=== PATIENT | male | born 1965 | race African-American/Black ===

== ENCOUNTER 2018-06-21 13:19 | Inpatient (IN) | payer OTHER ==
[~2018-06-21] VITALS: Ht 190.5 cm; Wt 149.2 kg
[2018-06-21] VITALS (12 sets, daily range): BP systolic 124–163; BP diastolic 60–84
--- NOTE | ~2018-06-21 | EKG ---
[place] [address] [facility] [place] [address] ELECTROCARDIOGRAM REPORT Name: GUI BUTLER Room #: 239-P ADM IN M.R.#: [id number] Admission: 06/21/18 Attend Phys: Kevin Gorman MD Discharge: Date of : 61 Report #: [id number] THIS REPORT FOR: //name// [facility] ED Test Date: 2018-06-21 Test Time: 13:33:14 Pat Name: GUI BUTLER Department: Room: 239 Gender: M Rn Anesthetist: SERINA : 1965 Requested By: Loan Umana Order Number: [id number] MD: Anand Robledo Measurements Intervals [place] Rate: 77 P: 54 [place]: 187 QRS: 48 QRSD: 103 T: 64 QT: 437 QTc: 495 Interpretive Statements Sinus rhythm Occasional supraventricular complexes Borderline prolonged QT interval No previous ECG available for comparison Electronically Signed On 06-22-2018 8:02:52 CDT by Anand Robledo [email or web address] <ELECTRONICALLY SIGNED> By: Anand Robledo MD, [facility] 06/22/18 0802 1333 32 Anand Robledo MD, FACC /EPI
--- NOTE | ~2018-06-21 | 2DMMODE ---
[address] [address] 2 D/M-MODE ECHOCARDIOGRAM Name: GUI BUTLER Room #: 239-P ADM IN M.R.#: [id number] Admission: 06/21/18 Attend Phys: Kevin Gorman, Discharge: Date of : 61 Date of Service: 06/22/18 0919 Report #: [id number] THIS REPORT FOR: //name// APPROVED REPORT Study performed: 06/22/2018 08:31:38 EXAM: Comprehensive 2D, Doppler, and color-flow Echocardiogram Patient Location: ICU Room #: 239 Status: routine BSA: 2.75 HR: 78 bpm BP: 128/67 mmHg Rhythm: NSR Other Information Study Quality: Adequate Indications Congestive Heart Failure COPD Diabetes Dyspnea Hypertension/HDD Morbid obesity 2D Dimensions IVC: 33.00 mm Tricuspid Valve TR Peak Brennen.: 3.80 m/s TR Peak Gr.: 57.83 mmHg PA Pressure: 73.00 mmHg Left Ventricle The left ventricle is normal size. There is normal LV segmental wall motion. Mild concentric left ventricular hypertrophy. The left ventricular systolic function is normal. The left ventricular ejection fraction is within the normal range. LVEF is 55-60%. Right Ventricle Right ventricle is dilated. The right ventricular systolic function is normal. [address] [place] [address] 2 D/M-MODE ECHOCARDIOGRAM Name: GUI BUTLER Room #: 239-P ADM IN M.R.#: [id number] Admission: 06/21/18 Attend Phys: Kevin Gorman, Discharge: Date of : 61 Date of Service: 06/22/18918 Report #: [id number] Atria The left atrium size is normal. Right atrium is dilated. Aortic Valve The aortic valve is not well visualized, grossly normal. No Doppler Mitral Valve The mitral valve is normal in structure. No Doppler Tricuspid Valve The tricuspid valve is normal in structure. There is moderate tricuspid regurgitation. Estimated PAP 70 mmHg. There is severe pulmonary hypertension. Pulmonic Valve The pulmonary valve is normal in structure. Great Vessels The aortic root is normal in size. The inferior vena cava is dilated with no inspiratory collapse. Pericardium There is no pericardial effusion. <Conclusion> Limited/Abbreviated study The left ventricular systolic function is normal. There is normal LV segmental wall motion. Right atrium and right ventricle are dilated. The aortic valve is not well visualized, grossly normal. The mitral valve is normal in structure. There is moderate tricuspid regurgitation. Estimated pulmonary artery pressure of 70 mmHg. There is no pericardial effusion. <ELECTRONICALLY SIGNED> By: Anand Robledo MD, FAC 06/22/18918 8 8 Anand Robledo MD, FACC /INF
--- NOTE | ~2018-06-21 | HC ---
[facility] [place] [address] CONSULTATION Name: GUI BUTLER Room #: 239-P [facility] IN M.R.#: [id number] Admission: 06/21/18 Attend Phys: Kevin Gorman MD Discharge: Date of : 61 Report #: [id number] THIS REPORT FOR: //name// CC: JEREMÍAS physician/PCP Kevin Gorman DATE OF SERVICE: 06/21/2018 REASON FOR CONSULTATION: Acute on chronic kidney disease. HISTORY OF PRESENT ILLNESS: The patient is followed in our office by Dr. Turcios with chronic kidney disease, baseline serum creatinine of about 3 with recurrent admissions for respiratory failure, usually hypercapnic acute respiratory failure with pulmonary infiltrates and diastolic heart failure. He is admitted again with similar findings at this time. He presents extremely short winded with a very high pCO2, depressed mental status and elevated creatinine. PAST MEDICAL HISTORY: Diabetic nephropathy, obesity with obesity hypoventilation, paroxysmal atrial fibrillation, severe cor pulmonale, hypertension, diabetes. Also, includes obstructive sleep apnea. He has some sort of Trilogy machine at home and hypothyroidism. FAMILY HISTORY: Please see old charts. SOCIAL HISTORY: No cigarettes or alcohol. REVIEW OF SYSTEMS: Cannot be taken as the patient's mental status is rather depressed. He is seen in the ICU on CPAP. HOME MEDICATIONS: As listed include DuoNeb inhaler, tapering prednisone, Ceftin, Synthroid 200 mcg a day, torsemide 40 mg a day, insulin, amlodipine 5 mg per day. PHYSICAL EXAMINATION: GENERAL: Obese, chronically ill-appearing gentleman, poorly responsive on the BiPAP in ICU. SKIN: Unremarkable. SKELETAL: Well developed, well nourished, obese. HEENT: Extraocular movements cannot be tested. Pupils are reactive. No scleral icterus. Hearing and vision not tested. Face mask on with his BiPAP. CHEST: Shows diminished breath sounds. HEART: Distant. ABDOMEN: Soft, obese. EXTREMITIES: 2+ peripheral edema. NEUROLOGIC: Again, depressed mental status. [facility] [address] [place] [address] CONSULTATION Name: GUI BUTLER Room #: [facility] IN .R.#: [id number] Admission: 06/21/18 Attend Phys: Kevin Gorman MD Discharge: Date of : 61 Report #: [id number] LABORATORY DATA: Creatinine 4.3, BUN 90, creatinine up from 3.2 at time of discharge 6 weeks ago or so. Chest x-ray shows congestive heart failure. ASSESSMENT AND PLAN: 1. Acute on chronic kidney disease. He has respiratory failure, cor pulmonale, decreased renal perfusion, elevated creatinine. Hopefully, with diuresis this will resolve as it has in the past. 2. Respiratory failure, whether he needs antibiotics and/or steroids is up in the air. I will leave that to Pulmonary. 3. Diabetic nephropathy. 4. Obesity hypoventilation. 5. Cor pulmonale. 6. Poor dietary compliance. By: 1733 2312 Richard Cazares MD /nt
[~2018-06-21 13:19] MED LIST: ALDACTONE25 MG PO; AMARYL1 MG; AMLODIPINE; AMLODIPINE PO; ARICEPT23 MG; ASPIRIN EC81 M1; AUGMENTIN 875875 MG PO; AVAPRO300 MG; BACTRIM DS TAB1 EACH PO; CEFUROXIME250 MG PO; COLCHICINE0.6 MG PO; COLCRYS 0.6 MG0.6 MG PO; DEMADEX 2020 MG/1 TA PO; DEMADEX20 MG; DIGOXIN; DOXYCYCLINE 10100 M1 PO; DUONEB 2.5-0.5 M3 ML INH; ERYTHROMYCIN E3.5 G2 OPHTHALMIC; FIASP 100100 UNIT/1 SUBQ; FLAGYL500 MG PO; FUROSEMIDE; HUMALOG100 UNIT/1 SUBQ; HYDROXYZINE HCL25 M1 PO; IBUPROFEN 600600 M1 PO; IRON325 PO; K-DUR 20 MEQ T20 MEQ; KEFLEX500 M1 PO; LANOXIN 0.120.125 M3; LANOXIN 0.250.25 M1 PO; LANTUS SOL100 UNIT/1 SUBQ; LANTUS100 UNIT/M SUBQ; LASIX 40 MG TAB40 MG PO; LASIX 80 MG TAB80 MG PO; LISINOPRIL; LISINOPRIL40 MG PO; LISINOPRIL5 MG; MIRALAX17 GM PO; NAMENDA 10 MG T10 MG; NEPHROCAPS SOFT1 CAP PO; NORCO 5-325 TA1 EACH PO; NORVASC 5 MG TAB5 MG PO; NORVASC5 MG PO; NOVOLIN N100 UNIT/1 SQ; NOVOLIN N100 UNIT/1 SUBQ; OXYCODONE HCL10 MG PO; PERCOCET 5-3251 EACH PO; PERCOCET PO; POTASSIUM; PREDNISONE 10 M10 MG; PREDNISONE 10 M10 MG PO; PREDNISONE 20 M20 MG PO; PREDNISONE 5 MG5 MG PO; PRINIVIL PO; PRINIVIL20 MG PO; PROBIOTIC1 EAC1 PO; RENVELA800 MG PO; SEROQUEL 25 MG25 M1; SYNTHROID; SYNTHROID125 MCG; SYNTHROID200 MCG PO; SYNTHROID50 MCG; TORSEMIDE10 MG PO; TORSEMIDE20 MG PO; TYLENOL325 MG PO; ULTRA-LIGHT RO1 EACH MC; ULTRAM 50MG TAB50 MG PO; UNICOMPLEX M TA1 TA1 PO; V-R WOMEN'S CO1 EACH PO; VIT D; VITAMIN D31000 UNI2; ZOLOFT 50 MG TA50 M1; [UNRECOGNIZED DRUG - OTHER]
[2018-06-21 14:08] LABS: HEMATOCRIT 28.2 % (42.0-52.0); HEMOGLOBIN 8.5 gm/dL (14.0-18.0); MCH 25.2 pg (26.0-34.0); MCV 84.2 fL (80.0-100.0); PLATELET COUNT 261 thou/uL (150-400); RBC 3.35 mil/uL (4.50-6.00); RDW 19.7 % (10.5-14.5); WBC 8.8 thou/uL (4.0-11.0)
[2018-06-21 14:17] LABS: ANION GAP 7 mmol/L (7-16); BUN 87 mg/dL (7-18); CALCIUM 8.7 mg/dL (8.5-10.1); CHLORIDE 103 mmol/L (98-107); CO2 27 mmol/L (21-32); CREATININE 4.3 mg/dL (0.7-1.3); GLUCOSE 207 mg/dL (74-106); POTASSIUM 4.6 mmol/L (3.5-5.1); SODIUM 137 mmol/L (136-145)
[2018-06-21 14:26] LABS: TROPONIN-I <0.06 ng/mL (<0.06)
[2018-06-21 14:48] LABS: ABSOLUTE NEUTROPHILS 6.9 thou/uL (1.4-8.2); ANISOCYTOSIS 2+
[2018-06-21 14:49] LABS: POLYCHROMASIA OCCASIONAL
[2018-06-21 15:18] LABS: BE(vivo) -2.4 mmol/L (-2 to +3); HCO3 27.3 mmol/L (22.0-26.0); sO2 94.4 % (92.0-98.0)
[2018-06-21 15:19] LABS: PCO2 82.9 mmHg (35.0-45.0); PO2 95.2 mmHg (80.0-100.0); pH 7.136 (7.360-7.450)
[2018-06-21 16:24] LABS: ALBUMIN 3.3 g/dL (3.4-5.0); CALCIUM 8.4 mg/dL (8.5-10.1); CREATININE 4.3 mg/dL (0.7-1.3); POTASSIUM 4.7 mmol/L (3.5-5.1); TOTAL BILIRUBIN 0.4 mg/dL (<0.1-1.0)
[2018-06-21 17:46] LABS: BE(vivo) -1.1 mmol/L (-2 to +3); HCO3 27.6 mmol/L (22.0-26.0); sO2 90.5 % (92.0-98.0)
[2018-06-21 17:47] LABS: PCO2 72.3 mmHg (35.0-45.0); PO2 73.1 mmHg (80.0-100.0)
[2018-06-22] VITALS (20 sets, daily range): BP systolic 15–164; BP diastolic 58–98
[2018-06-22 07:43] LABS: CALCIUM 8.2 mg/dL (8.5-10.1); CREATININE 3.8 mg/dL (0.7-1.3); PHOSPHORUS 5.7 mg/dL (2.5-4.9); POTASSIUM 4.9 mmol/L (3.5-5.1)
[2018-06-22 08:13] LABS: HCO3 25.8 mmol/L (22.0-26.0); PCO2 62.2 mmHg (35.0-45.0); pH 7.236 (7.360-7.450); sO2 95.1 % (92.0-98.0)
[2018-06-22 08:14] LABS: PO2 89.5 mmHg (80.0-100.0)
[2018-06-23] VITALS (11 sets, daily range): BP systolic 129–165; BP diastolic 60–97
[2018-06-23 05:46] LABS: ALBUMIN 2.9 g/dL (3.4-5.0); CALCIUM 8.2 mg/dL (8.5-10.1); CREATININE 3.6 mg/dL (0.7-1.3); PHOSPHORUS 4.9 mg/dL (2.5-4.9); POTASSIUM 4.7 mmol/L (3.5-5.1)
[2018-06-23 05:51] LABS: HEMATOCRIT 25.3 % (42.0-52.0); HEMOGLOBIN 7.8 gm/dL (14.0-18.0); MCH 25.4 pg (26.0-34.0); MCHC 30.7 g/dL (28.0-37.0); MCV 82.8 fL (80.0-100.0); RBC 3.05 mil/uL (4.50-6.00); RDW 19.4 % (10.5-14.5); WBC 7.1 thou/uL (4.0-11.0)
[2018-06-23 08:48] LABS: BE(vivo) 0.9 mmol/L (-2 to +3); HCO3 28.6 mmol/L (22.0-26.0); PCO2 63.9 mmHg (35.0-45.0); PO2 70.4 mmHg (80.0-100.0); pH 7.268 (7.360-7.450); sO2 91.3 % (92.0-98.0)
[2018-06-24 03:36] VITALS: BP 146/81
[2018-06-24 05:11] LABS: ALBUMIN 2.8 g/dL (3.4-5.0); CALCIUM 8.5 mg/dL (8.5-10.1); CREATININE 3.7 mg/dL (0.7-1.3); PHOSPHORUS 4.4 mg/dL (2.5-4.9); POTASSIUM 4.8 mmol/L (3.5-5.1)
[2018-06-24 05:40] LABS: HEMATOCRIT 26.4 % (42.0-52.0); MCH 25.2 pg (26.0-34.0); MCHC 30.5 g/dL (28.0-37.0); MCV 82.9 fL (80.0-100.0); RBC 3.18 mil/uL (4.50-6.00); RDW 19.5 % (10.5-14.5); WBC 7.8 thou/uL (4.0-11.0)
[2018-06-24 07:43] VITALS: BP 167/93
[2018-06-24 12:03] VITALS: BP 118/67
[2018-06-24 16:59] VITALS: BP 104/54
[2018-06-24 20:59] VITALS: BP 100/59
[2018-06-25 05:10] LABS: HEMATOCRIT 25.8 % (42.0-52.0); HEMOGLOBIN 7.8 gm/dL (14.0-18.0); MCH 25.1 pg (26.0-34.0); MCHC 30.1 g/dL (28.0-37.0); MCV 83.3 fL (80.0-100.0); RBC 3.1 mil/uL (4.50-6.00); RDW 19.9 % (10.5-14.5); WBC 6.8 thou/uL (4.0-11.0)
[2018-06-25 05:26] LABS: ALBUMIN 2.7 g/dL (3.4-5.0); CALCIUM 8.7 mg/dL (8.5-10.1); CREATININE 4.3 mg/dL (0.7-1.3); PHOSPHORUS 5.4 mg/dL (2.5-4.9); POTASSIUM 5.1 mmol/L (3.5-5.1)
[2018-06-25 05:47] LABS: BE(vivo) -0.3 mmol/L (-2 to +3); HCO3 26.7 mmol/L (22.0-26.0); PCO2 56.4 mmHg (35.0-45.0); PO2 69.7 mmHg (80.0-100.0); sO2 91.8 % (92.0-98.0)
[2018-06-25 05:50] LABS: pH 7.293 (7.360-7.450)
[2018-06-25 08:50] VITALS: BP 110/58
[2018-06-25] MEDS ORDERED: BYSTOLIC 5 MG5 M1 PO (10:28)
[2018-06-25] MEDS ORDERED: TORSEMIDE20 MG PO (10:29)
[2018-06-25] MEDS ORDERED: COLCHICINE0.6 MG PO (10:33)
[2018-06-25 11:13] VITALS: BP 110/58
[2018-06-25 11:35] VITALS: BP 104/54
[2018-06-25 14:47] VITALS: BP 110/58
== END 2018-06-25 15:45 | disposition home or self-care (01) | DRG 291 ==
LOC: ER 13:19 → EDBD 13:19 → EROBS 14:03 → ICU 14:03 → 2N 06-23 12:04 → ENTRNSPT 06-25 14:33 → 2N 06-25 15:45
PROVIDERS: Emergency Medicine; Internal Medicine; Internal Medicine Nephrology; Internal Medicine Pulmonary Disease
PROC: 5A09357 Assistance with Respiratory Ventilation, Less than 24 Consecutive Hours, Continuous Positive Airway Pressure (ICD-10-PCS; principal; 2018-06-21)
PROC: 5A09357 Assistance with Respiratory Ventilation, Less than 24 Consecutive Hours, Continuous Positive Airway Pressure (ICD-10-PCS; 2018-06-22)
PROC: 5A09357 Assistance with Respiratory Ventilation, Less than 24 Consecutive Hours, Continuous Positive Airway Pressure (ICD-10-PCS; 2018-06-23)
PROC: 5A09357 Assistance with Respiratory Ventilation, Less than 24 Consecutive Hours, Continuous Positive Airway Pressure (ICD-10-PCS; 2018-06-24)
PROC: 5A09357 Assistance with Respiratory Ventilation, Less than 24 Consecutive Hours, Continuous Positive Airway Pressure (ICD-10-PCS; 2018-06-25)
DX: I13.0 Hypertensive heart and chronic kidney disease with heart failure and stage 1 through stage 4 chronic kidney disease, or unspecified chronic kidney disease (principal); I50.33 Acute on chronic diastolic (congestive) heart failure; J96.21 Acute and chronic respiratory failure with hypoxia; J96.22 Acute and chronic respiratory failure with hypercapnia; N17.9 Acute kidney failure, unspecified; J98.11 Atelectasis; E87.2 Acidosis; Z68.41 Body mass index [BMI] 40.0-44.9, adult; E66.01 Morbid (severe) obesity due to excess calories; I48.0 Paroxysmal atrial fibrillation; G47.33 Obstructive sleep apnea (adult) (pediatric); E03.9 Hypothyroidism, unspecified; D64.9 Anemia, unspecified; M10.9 Gout, unspecified; E11.22 Type 2 diabetes mellitus with diabetic chronic kidney disease; N18.9 Chronic kidney disease, unspecified; I27.81 Cor pulmonale (chronic); I27.20 Pulmonary hypertension, unspecified; Z90.49 Acquired absence of other specified parts of digestive tract; Z93.0 Tracheostomy status; Z79.899 Other long term (current) drug therapy; Z91.11 Patient's noncompliance with dietary regimen
CPT/HCPCS: 10078; 10081

== ENCOUNTER 2018-10-12 11:32 | Inpatient (IN) | payer OTHER ==
[~2018-10-12] VITALS: Ht 180.3 cm; Wt 148.8 kg
[2018-10-12] VITALS (16 sets, daily range): BP systolic 100–176; BP diastolic 64–96
--- NOTE | ~2018-10-12 | 2DMMODE ---
[facility] [address] [place] [address] 2 D/M-MODE ECHOCARDIOGRAM Name: GUI BUTLER Room #: 242-P ADM IN M.R.#: [id number] Admission: 10/12/18 Attend Phys: Rigo Priest Discharge: Date of : 61 Date of Service: 10/13/1814 Report #: [id number] THIS REPORT FOR: //name// APPROVED REPORT Study performed: 10/13/2018 07:54:09 EXAM: Comprehensive 2D, Doppler, and color-flow Echocardiogram Patient Location: ICU Room #: 242 Status: routine BSA: 2.55 HR: 83 bpm BP: 155/74 mmHg Other Information Study Quality: Adequate Indications Congestive Heart Failure Diabetes SOB, Hx afib 2D Dimensions RVDd: 57.07 mm IVSd: 11.27 (7-11mm) LVOT Diam: 23.07 (18-24mm) LVDd: 52.14 mm PWd: 12.84 (7-11mm) Ascending Ao: 34.74 (22-36mm) LVDs: 40.64 (25-40mm) Aortic Root: 35.37 mm IVC: 35.00 mm Volumes Left Atrial Volume (Systole) Single Plane 4CH: 137.44 mL Single Plane 2CH: 119.51 mL LA ESV Index: 54.00 mL/m2 Aortic Valve AoV Peak Brennen.: 1.22 m/s AO Peak Gr.: 5.91 mmHg LVOT Max P.55 mmHg LVOT Max V: 0.80 m/s ELIZABETH Vmax: 2.74 cm2 Mitral Valve MV Decel. Time: 210.11 ms MV E Max Brennen.: 1.20 m/s [facility] [address] [place] [address] 2 D/M-MODE ECHOCARDIOGRAM Name: GUI BUTLER Room #: 242-[facility] IN [facility].#: [id number] Admission: 10/12/18 Attend Phys: Rigo Priest Discharge: Date of : 61 Date of Service: 10/13/18 0914 Report #: [id number] IVRT: 83.04 ms Pulmonary Valve PV Peak Brennen.: 0.94 m/s PV Peak Gr.: 3.55 mmHg Tricuspid Valve TR Peak Brennen.: 3.53 m/s RAP Estimate: 15.00 mmHg TR Peak Gr.: 49.76 mmHg PA Pressure: 65.00 mmHg Left Ventricle The left ventricle is normal size. Regional wall motion is not well visualized but grossly normal. Mild concentric left ventricular hypertrophy. Left ventricular systolic function is normal. LVEF is 50-55%. Right Ventricle Right ventricle is dilated. The right ventricular systolic function is normal. Atria Left atrium is dilated. Right atrium is dilated. Aortic Valve The aortic valve is mildly sclerotic. No aortic regurgitation is present. There is no aortic valvular stenosis. Mitral Valve The mitral valve is normal in structure. Mild to moderate mitral regurgitation. No evidence of mitral valve stenosis. Tricuspid Valve The tricuspid valve is normal in structure. Severe tricuspid regurgitation. PAP is estimated at 65 mmHg. Pulmonic Valve The pulmonary valve is normal in structure. Trace pulmonic regurgitation. Great Vessels The aortic root is normal in size. IVC is dilated and collapses <50% with inspiration. Pericardium There is no pericardial effusion. [facility] [place] [address] [place] [address] 2 D/M-MODE ECHOCARDIOGRAM Name: GUI BUTLER Room #: 242-P ADM IN M.R.#: [id number] Admission: 10/12/18 Attend Phys: Rigo Priest Discharge: Date of : 61 Date of Service: 10/13/18913 Report #: [id number] <Conclusion> Left ventricular systolic function is normal. Regional wall motion is not well visualized but grossly normal. LVEF is 50-55%. Both atria are dilated Left atrium is dilated. The aortic valve is mildly sclerotic. No aortic regurgitation or stenosis The mitral valve is normal in structure. Mild to moderate mitral regurgitation. Severe tricuspid regurgitation. Pulmonary artery pressure estimated at 65 mmHg. There is no pericardial effusion. <ELECTRONICALLY SIGNED> By: Anand Robledo MD, [facility] 10/13/18913 3 3 Anand Robledo MD, FACC /INF
--- NOTE | ~2018-10-12 | EKG ---
[address] [address] ELECTROCARDIOGRAM REPORT Name: GUI BUTLER Room #: 242-P ADM IN M.R.#: [id number] Admission: 10/12/18 Attend Phys: Rigo Huang Discharge: Date of : 61 Report #: [id number] THIS REPORT FOR: //name// [facility] ED Test Date: 2018-10-12 Test Time: 11:49:10 Pat Name: GUI BUTLER Department: Room: 242 Gender: M Pediatric Physical Therapist: DWIGHT : 1965 Requested By: Kezia Sinclair Order Number: [id number] MD: Martinez Mohamud Measurements Intervals [place] Rate: 83 P: [place]: QRS: 63 QRSD: 114 T: 98 QT: 427 QTc: 502 Interpretive Statements Atrial fibrillation Borderline intraventricular conduction delay Borderline low voltage, extremity leads Nonspecific T abnormalities, lateral leads Electronically Signed On 10-12-2018 16:24:02 [employer] by Martinez Mohamud [email or web address] <ELECTRONICALLY SIGNED> By: Martinez Mohamud MD 10/12/18 1624 1149 1149 MD REGINA Carlos
--- NOTE | ~2018-10-12 | HC ---
[facility] [place] [address] CONSULTATION Name: GUI JOY Room #: 207-P [facility] IN M.R.#: [id number] Admission: 10/12/18 Attend Phys: Rigo Huang Discharge: 10/15/18 Date of : 61 Report #: [id number] THIS REPORT FOR: //name// CC: Rigo Huang Dillon Joy DATE OF SERVICE: 10/12/2018 REFERRAL PHYSICIAN: Dr. Huang. REASON FOR REFERRAL: Dyspnea. HISTORY OF PRESENT ILLNESS: The patient is a 53-year-old -[place] male who presents to the Emergency Room with dyspnea. A pulmonary consultation was requested. The patient has multitude of medical problems including, YELENA, morbid obesity. He has a history of severe pulmonary hypertension. The patient has had multiple hospitalizations in the past for similar problems, his last hospitalization being June of 2018. He was in his usual state of health until 2 days prior to presentation and he noticed increasing dyspnea. This is following Thanksgiving. He noted that his legs were more swollen than normal. He is currently on Lasix. With worsening symptoms, he presented to the Emergency Room. Otherwise, denies any recent febrile illness, chest pain or productive cough. PAST MEDICAL HISTORY: Sleep apnea, BiPAP at 20/16 cm water pressure, 5 liters of O2, morbid obesity, restrictive ventilatory defect, chronic right-sided heart failure, cor pulmonale, severe pulmonary hypertension, gout, hypothyroidism, coronary artery disease, history of myocardial infarction, chronic kidney disease stage 4, diabetes mellitus type 2. PAST SURGICAL HISTORY: He is status post previous tracheostomy, PEG tube, prior abdominal hernia, surgical debridement of abdominal wound. ALLERGIES: None to medications. MEDICATIONS: List reviewed. These include Lasix, Synthroid, Bactrim. FAMILY HISTORY: Notable for diabetes and hypertension, father due to lung cancer. SOCIAL HISTORY: Single. He lives alone in a house. The patient has never [facility] [address] [place] [address] CONSULTATION Name: GUI JOY Room #: 207-P [facility] IN [facility]#: [id number] Admission: 10/12/18 Attend Phys: Rigo Huang Discharge: 10/15/18 Date of : 61 Report #: [id number] smoked. He smokes marijuana 4-5 times a week. He drinks occasionally. REVIEW OF SYSTEMS: As mentioned above, otherwise 10-point system review negative. PHYSICAL EXAMINATION: GENERAL: He is awake, alert, in mild distress, appears mildly dyspneic. VITAL SIGNS: Temperature is 98 degrees Fahrenheit, pulse 100, respiratory rate 28, blood pressure is 130/70 mmHg, saturation 93%. HEENT: Normocephalic, atraumatic. NECK: Supple without any lymphadenopathy or thyromegaly. CHEST: Breath sounds are decreased bilaterally with bilateral crackles. No wheezes. CARDIOVASCULAR: Heart sounds are distant. No obvious murmurs or gallop. Pulses are 2+/4+ bilaterally. ABDOMEN: Obese, soft, nontender, no organomegaly or masses felt. GENITOURINARY: Deferred. RECTAL: Deferred. EXTREMITIES: Notable for 3+ bilateral pretibial edema. NEUROLOGIC: Grossly intact. LABORATORY DATA: Chest x-ray shows increased interstitial infiltrates consistent with Santiago B lines. Echocardiogram showed ejection fraction of 50-55%, pulmonary artery pressure measures 65. Otherwise, no significant valvular heart disease. Sodium 143, potassium 4.3, chloride 106, CO2 of 29, BUN is 93, creatinine 3.5. WBC 6000, hemoglobin 7.5, platelets normal. Arterial blood gas revealed pH 7.24, pCO2 of 64, pO2 of 84 on 50% FiO2. Albumin 3.0. IMPRESSION: 1. Acute on chronic diastolic heart failure. 2. Acute on chronic hypercapnic hypoxic respiratory failure due to heart failure as mentioned above. 3. Obstructive sleep apnea, on home BiPAP setting as mentioned above. 4. Morbid obesity. 5. Acute kidney injury/chronic kidney disease, stage 4. 6. Hypertension. 7. Paroxysmal atrial fibrillation. 8. Hypothyroidism. 9. Severe pulmonary hypertension secondary to obesity, sleep apnea, no treatment intervention is indicated at this time. RECOMMENDATION: Agree with gentle diuresis. Wean O2 for saturation 90%. Continue noninvasive positive pressure ventilation as tolerated. The patient will need to continue BiPAP during sleep for his sleep apnea. Okay to discharge corticosteroids as the patient does not have a history of chronic obstructive lung disease. DVT and GI prophylaxis is recommended. Dietary education [address] [address] CONSULTATION Name: GUI JOY Room #: 207-P [facility] IN M.R.#: [id number] Admission: 10/12/18 Attend Phys: Rigo Huang Discharge: 10/15/18 Date of : 61 Report #: [id number] restriction and sodium intake will be helpful in this patient. Thank you for this consultation. <ELECTRONICALLY SIGNED> By: Milton Day MD 10/15/18 1530 1353 2346 Milton Day MD /nt
[~2018-10-12 11:32] MED LIST changes: +BYSTOLIC 5 MG5 M1 PO; +FLEXERIL PO; +GLIPIZIDE ER2.5 MG PO; +LASIX 40 MG TAB40 M2 PO; +METOLAZONE 5 MG5 MG PO; +MORPHINE SULFAT15 M3 PO; +NORVASC2.5 MG PO
[2018-10-12 11:58] LABS: EOSINOPHILS 2.4 % (0.0-3.0); HEMOGLOBIN 7.5 gm/dL (14.0-18.0); MCH 26.1 pg (26.0-34.0)
[2018-10-12 12:05] LABS: ANION GAP 8 mmol/L (7-16); BUN 93 mg/dL (7-18); CALCIUM 9.5 mg/dL (8.5-10.1); CHLORIDE 106 mmol/L (98-107); CO2 29 mmol/L (21-32); CREATININE 3.5 mg/dL (0.7-1.3); GLUCOSE 128 mg/dL (74-106); POTASSIUM 4.3 mmol/L (3.5-5.1); SODIUM 143 mmol/L (136-145)
[2018-10-12 12:13] LABS: TROPONIN-I <0.06 ng/mL (<0.06)
[2018-10-12 12:18] LABS: ABSOLUTE NEUTROPHILS 4.4 thou/uL (1.4-8.2); BASOPHILS 0.3 % (0.0-2.0); HEMATOCRIT 24.8 % (42.0-52.0); MCHC 30.4 g/dL (28.0-37.0); PLATELET COUNT 219 thou/uL (150-400); POLYS 72.3 % (36.0-66.0); RBC 2.89 mil/uL (4.50-6.00); RDW 23.3 % (10.5-14.5)
[2018-10-12 12:38] LABS: BE(vivo) -0.6 mmol/L (-2 to +3); HCO3 27.2 mmol/L (22.0-26.0); PCO2 64.6 mmHg (35.0-45.0); PO2 84.3 mmHg (80.0-100.0); sO2 94.3 % (92.0-98.0)
[2018-10-12 12:39] LABS: pH 7.242 (7.360-7.450)
[2018-10-12 12:50] LABS: ANISOCYTOSIS 3+; HYPOCHROMASIA 2+; PLATELET ESTIMATE NORMAL; POLYCHROMASIA SLIGHT; SCHISTOCYTES 1+
[2018-10-13] VITALS (17 sets, daily range): BP systolic 115–144; BP diastolic 58–88
[2018-10-13 05:12] LABS: CALCIUM 9.1 mg/dL (8.5-10.1); CREATININE 3.4 mg/dL (0.7-1.3)
[2018-10-13 05:14] LABS: POTASSIUM 5.2 mmol/L (3.5-5.1)
[2018-10-14] VITALS (7 sets, daily range): BP systolic 131–147; BP diastolic 70–94
[2018-10-14 05:54] LABS: HEMATOCRIT 23.6 % (42.0-52.0); HEMOGLOBIN 7.5 gm/dL (14.0-18.0); MCHC 31.9 g/dL (28.0-37.0); MCV 84.7 fL (80.0-100.0); RBC 2.78 mil/uL (4.50-6.00); RDW 23.4 % (10.5-14.5); WBC 5.5 thou/uL (4.0-11.0)
[2018-10-14 06:07] LABS: CALCIUM 8.8 mg/dL (8.5-10.1); CREATININE 3.3 mg/dL (0.7-1.3); PHOSPHORUS 4.2 mg/dL (2.5-4.9); POTASSIUM 5.1 mmol/L (3.5-5.1)
[2018-10-15 04:00] VITALS: BP 146/97
[2018-10-15 04:56] LABS: HEMATOCRIT 24.5 % (42.0-52.0); HEMOGLOBIN 7.7 gm/dL (14.0-18.0); MCH 26.5 pg (26.0-34.0); MCHC 31.2 g/dL (28.0-37.0); MCV 84.7 fL (80.0-100.0); RBC 2.9 mil/uL (4.50-6.00); RDW 23.6 % (10.5-14.5); WBC 6.8 thou/uL (4.0-11.0)
[2018-10-15 05:02] LABS: CALCIUM 8.5 mg/dL (8.5-10.1); CREATININE 3.2 mg/dL (0.7-1.3); POTASSIUM 4.8 mmol/L (3.5-5.1)
[2018-10-15 08:22] VITALS: BP 107/74
[2018-10-15] MEDS ORDERED: PREDNISONE 10 M10 M1 PO (08:55)
== END 2018-10-15 13:00 | disposition home health service (06) | DRG 291 ==
LOC: ER 11:32 → ICU 13:58 → EROBS 13:58 → ICU 16:06 → 2N 10-14 03:40
PROVIDERS: Emergency Medicine; Hospitalist; Internal Medicine; Internal Medicine Pulmonary Disease
PROC: 5A09357 Assistance with Respiratory Ventilation, Less than 24 Consecutive Hours, Continuous Positive Airway Pressure (ICD-10-PCS; principal; 2018-10-12)
PROC: 5A09357 Assistance with Respiratory Ventilation, Less than 24 Consecutive Hours, Continuous Positive Airway Pressure (ICD-10-PCS; 2018-10-13)
PROC: 5A09357 Assistance with Respiratory Ventilation, Less than 24 Consecutive Hours, Continuous Positive Airway Pressure (ICD-10-PCS; 2018-10-14)
PROC: 5A09357 Assistance with Respiratory Ventilation, Less than 24 Consecutive Hours, Continuous Positive Airway Pressure (ICD-10-PCS; 2018-10-15)
DX: I13.0 Hypertensive heart and chronic kidney disease with heart failure and stage 1 through stage 4 chronic kidney disease, or unspecified chronic kidney disease (principal); I50.33 Acute on chronic diastolic (congestive) heart failure; J96.21 Acute and chronic respiratory failure with hypoxia; J96.22 Acute and chronic respiratory failure with hypercapnia; N17.9 Acute kidney failure, unspecified; E87.2 Acidosis; J44.1 Chronic obstructive pulmonary disease with (acute) exacerbation; Z68.42 Body mass index [BMI] 45.0-49.9, adult; N18.4 Chronic kidney disease, stage 4 (severe); I27.20 Pulmonary hypertension, unspecified; Z60.2 Problems related to living alone; I48.0 Paroxysmal atrial fibrillation; E83.42 Hypomagnesemia; D64.9 Anemia, unspecified; E11.22 Type 2 diabetes mellitus with diabetic chronic kidney disease; E03.9 Hypothyroidism, unspecified; E66.01 Morbid (severe) obesity due to excess calories; G47.33 Obstructive sleep apnea (adult) (pediatric); M10.9 Gout, unspecified; I25.10 Atherosclerotic heart disease of native coronary artery without angina pectoris; I25.2 Old myocardial infarction; Z93.1 Gastrostomy status; Z83.3 Family history of diabetes mellitus; Z93.0 Tracheostomy status; Z90.49 Acquired absence of other specified parts of digestive tract; Z82.49 Family history of ischemic heart disease and other diseases of the circulatory system; Z80.1 Family history of malignant neoplasm of trachea, bronchus and lung
CPT/HCPCS: 10078; 10081; 10203

== ENCOUNTER → 2018-11-11 | Outpatient (CLI) | payer OTHER ==
[~2018-11-11] MED LIST changes: -ALDACTONE25 MG PO; -AMARYL1 MG; -AMLODIPINE; -AMLODIPINE PO; -ARICEPT23 MG; -ASPIRIN EC81 M1; -AUGMENTIN 875875 MG PO; -AVAPRO300 MG; -CEFUROXIME250 MG PO; -COLCRYS 0.6 MG0.6 MG PO; -DEMADEX 2020 MG/1 TA PO; -DEMADEX20 MG; +DEMADEX20 MG PO; -DIGOXIN; -DOXYCYCLINE 10100 M1 PO; -DUONEB 2.5-0.5 M3 ML INH; -ERYTHROMYCIN E3.5 G2 OPHTHALMIC; -FIASP 100100 UNIT/1 SUBQ; -FLAGYL500 MG PO; -FUROSEMIDE; -HUMALOG100 UNIT/1 SUBQ; +HYDROCHLOROTHIA25 M2 PO; -HYDROXYZINE HCL25 M1 PO; -IBUPROFEN 600600 M1 PO; -IRON325 PO; -K-DUR 20 MEQ T20 MEQ; -LANOXIN 0.120.125 M3; -LANOXIN 0.250.25 M1 PO; -LANTUS SOL100 UNIT/1 SUBQ; -LANTUS100 UNIT/M SUBQ; -LASIX 40 MG TAB40 MG PO; -LASIX 80 MG TAB80 MG PO; -LISINOPRIL; -LISINOPRIL5 MG; -MIRALAX17 GM PO; -NAMENDA 10 MG T10 MG; -NEPHROCAPS SOFT1 CAP PO; -NORCO 5-325 TA1 EACH PO; -NORVASC 5 MG TAB5 MG PO; -NORVASC5 MG PO; -NOVOLIN N100 UNIT/1 SQ; -NOVOLIN N100 UNIT/1 SUBQ; -OXYCODONE HCL10 MG PO; -PERCOCET 5-3251 EACH PO; -PERCOCET PO; -POTASSIUM; +PREDNISONE 10 M10 M1 PO; -PREDNISONE 10 M10 MG; -PREDNISONE 10 M10 MG PO; -PREDNISONE 20 M20 MG PO; -PREDNISONE 5 MG5 MG PO; -PRINIVIL PO; -PRINIVIL20 MG PO; -PROBIOTIC1 EAC1 PO; -RENVELA800 MG PO; -SEROQUEL 25 MG25 M1; -SYNTHROID; -SYNTHROID125 MCG; -SYNTHROID200 MCG PO; -SYNTHROID50 MCG; -TORSEMIDE10 MG PO; -TYLENOL325 MG PO; -ULTRA-LIGHT RO1 EACH MC; -ULTRAM 50MG TAB50 MG PO; -UNICOMPLEX M TA1 TA1 PO; -V-R WOMEN'S CO1 EACH PO; -VIT D; -VITAMIN D31000 UNI2; -ZOLOFT 50 MG TA50 M1; -[UNRECOGNIZED DRUG - OTHER]
[2018-11-11 13:20] VITALS: BP 117/68
--- NOTE | 2018-11-11 13:25 | NUR ---
IN FOR LASIX IV PUSH FOR BILATERAL LEG EDEMA DUE TO CHF. LASIX GIVEN SLOW IV PUSH OVER 5 MINUTES AND TOLERATED WELL. VOIDED 300 ML WHILE HERE IN CLINIC. STATED FEELS SOB WITH EXERTION. WEARS HOME O2 6L/NC. O2 SAT 91% ON 6L/NC HERE TODAY. LUNG SOUNDS DIMINSHED. INSTRUCTED PATIENT TO GO TO ED IF DOES NOT FEEL BETTER OVER THE WEEKEND. STATED UNDERSTANDING. DISMISSED IN STABLE CONDITION.
== END ==
LOC: OPONC 06:31
DX: I50.21 Acute systolic (congestive) heart failure (principal)
CPT/HCPCS: 95113

== ENCOUNTER 2018-11-15 16:28 | Inpatient (IN) | payer OTHER ==
[~2018-11-15] VITALS: Ht 177.8 cm; Wt 134.0 kg
--- NOTE | ~2018-11-15 | HC ---
[facility] [place] [address] CONSULTATION Name: GUI BUTLER Room #: 360-P [facility] IN M.R.#: [id number] Admission: 11/15/18 Attend Phys: Anatoliy Reddy MD Discharge: Date of : 61 Report #: [id number] THIS REPORT FOR: //name// CC: Anatoliy Kilgoreothy Rufino DATE OF SERVICE: 11/16/2018 REASON FOR CONSULTATION: Zvvsm-uy-[id number] kidney disease. HISTORY OF PRESENT ILLNESS: The patient is extremely well known to our service, followed by Dr. Turcios in the office. He has chronic kidney disease, longstanding diabetes with diabetic nephropathy and proteinuria complicated by hypertension, morbid obesity. He also has right-sided heart failure, cor pulmonale, elevated pulmonary artery pressures and obesity hypoventilation with chronic CO2 retention on home O2. He is readmitted at this time after being out of the hospital for a month with worsening swelling and fluid overload mostly in his lower extremities. PAST MEDICAL HISTORY: As mentioned above. ALLERGIES: No known drug allergies. FAMILY HISTORY: No renal disease. SOCIAL HISTORY: No cigarettes or alcohol. REVIEW OF SYSTEMS: GENERAL: He has been getting progressively short-winded. EYES: Vision is reasonably good. ENT: Hearing okay. Swallows okay. ENDOCRINE: Positive for diabetes and thyroid disease. RESPIRATORY: Easily short-winded with orthopnea. CARDIAC: No chest pain, no palpitations. GASTROINTESTINAL: No nausea, vomiting or diarrhea. GENITOURINARY: Good urinary stream. EXTREMITIES: Lower extremity swelling. HOME MEDICATIONS: As listed include amlodipine 2.5 mg daily, glipizide 2.5 mg daily, hydrochlorothiazide 25 mg daily, Synthroid 200 mcg daily, lisinopril 40 mg daily, torsemide 100 mg daily. PHYSICAL EXAMINATION: GENERAL: Awake and alert, obese gentleman, bit short-winded, on oxygen. SKIN: Otherwise unremarkable. SKELETAL: Obese. [facility] [address] [place] [address] CONSULTATION Name: GUI BUTLER Room #: 360-P [facility] IN [facility]#: [id number] Admission: 11/15/18 Attend Phys: Anatoliy Reddy MD Discharge: Date of : 61 Report #: [id number] HEENT: Extraocular movements are full. Vision is intact. Hearing is intact. Mucous membranes moist. Tongue, buccal mucosa benign. NECK: Supple. No JVD. CHEST: Shows diminished breath sounds at the bases, but no crackles. HEART: Regular, distant. ABDOMEN: Soft, nontender. EXTREMITIES: Show type brawny edema with some erythema of the right lower extremity below the knee. NEUROLOGIC: Grossly intact. LABORATORY DATA: Hemoglobin is only 7.7. Sodium 145, potassium 4.8, chloride 107, bicarbonate 29, BUN 144, creatinine 4.2. ASSESSMENT AND PLAN: 1. Chronic kidney disease with acute rise in creatinine. Hopefully with diuresis and off the lisinopril, he will improve his serum creatinine and BUN, improve his renal perfusion. It is difficult to treat with a converting enzyme inhibitor with this high pulmonary pressure and severe right-sided failure and get reasonable renal perfusion. He does have some proteinuria and this makes it a difficult treatment issue. We will try for aggressive diuresis and then reevaluate. I will add chlorthalidone to his Lasix drip. 2. Diabetes mellitus with peripheral neuropathy. 3. Right-sided heart failure with cor pulmonale and lower extremity edema. 4. Obstructive sleep apnea, on CPAP. 5. Hypertension. By: 1118 1229 Richard Cazares MD /nt
--- NOTE | ~2018-11-15 | HC ---
[facility] [place] [address] CONSULTATION Name: JOYGIOVANNIGUI Room #: 210-P [facility] IN .R.#: [id number] Admission: 11/15/18 Attend Phys: Anatoliy Reddy MD Discharge: Date of : 61 Report #: [id number] THIS REPORT FOR: //name// CC: Anatoliy Joy DATE OF SERVICE: 11/28/2018 HISTORY OF PRESENT ILLNESS: The patient is a 53-year-old -[place] African male with a history of congestive heart failure, chronic kidney disease, hypertension, and obstructive sleep apnea. He was admitted with increased shortness of breath and lower extremity edema. The patient noted to have acute on chronic congestive heart failure with hypercapnic respiratory failure and end-stage renal disease. He has had a tunneled catheter placed and has been started on hemodialysis. We are seeing him in rehabilitation medicine consultation. PAST MEDICAL HISTORY: Includes CHF, restrictive lung disease, pulmonary hypertension, obstructive sleep apnea, and morbid obesity. He was on home O2 at 5 liters. He has had an abdominal wall debridement of an abscess. He has past history of tracheostomy, paroxysmal atrial fibrillation, and history of diabetes mellitus. MEDICATIONS: Please see the full medication listing. This includes vitamins, herbals, and supplements. ALLERGIES: No known drug allergies. HABITS: No history of tobacco or alcohol abuse. SOCIAL HISTORY: He lives in a house, a couple steps in. He lives by himself, did not utilize gait aids, was on O2. REVIEW OF SYSTEMS: He complains of weakness, upper and lower extremities with being in bed and going to dialysis. No chest pain, shortness of breath, or abdominal discomfort currently. He does have some numbness and tingling of his distal lower extremities. PHYSICAL EXAMINATION: GENERAL: The patient is a 53-year-old, significantly obese -[place] African male in no obvious distress. VITAL SIGNS: Height is 5 feet 10 inches, weight is 316 pounds. He is on nasal prong O2, currently on 5 liters. He is alert, pleasant. HEENT: Appeared to be benign. NEUROLOGIC: Cranial nerves are grossly intact. Facies are symmetric. EXTREMITIES: He has functional range of motion of the upper extremities. [facility] [address] [place] [address] CONSULTATION Name: GUI JOY Room #: 210-P [facility] IN .R.#: [id number] Admission: 11/15/18 Attend Phys: Anatoliy Reddy MD Discharge: Date of : 61 Report #: [id number] Strength is a grade 4- to 3+/5. Lower extremities, no focal calf swelling. Strength is a grade 3+/5. He can lift both legs up off the bed. Bed mobility is max assist. He has not been able to ambulate at this point. In occupational therapy, he was seen on 11/18/2018 was max assist for bed mobility. We will have OT reevaluate. ASSESSMENT: The patient is a 53-year-old -[place] African male with the following problem list: 1. Acute on chronic hypoxic hypercapnic respiratory failure. 2. Acute on chronic diastolic heart failure. 3. Acute on chronic kidney disease, stage 5. He is now been getting dialysis as per Nephrology. 4. Chronic obstructive pulmonary disease exacerbation. 5. Paroxysmal atrial fibrillation. 6. Hypertension. 7. Diabetes mellitus type 2. 8. Hypothyroidism. 9. Anemia of chronic disease. 10. Obesity. PLAN: We will have occupational therapy to reassess. He is continuing to work in therapies. Insurance will be checked regarding rehab therapy options. We will be glad to follow along with you. By: 1259 0002 Vinicio Velásquez MD /PMT
[2018-11-15 17:29] LABS: ABSOLUTE NEUTROPHILS 2.3 thou/uL (1.4-8.2); BASOPHILS 0.5 % (0.0-2.0); EOSINOPHILS 1.8 % (0.0-3.0); HEMATOCRIT 28.5 % (42.0-52.0); HEMOGLOBIN 8.8 gm/dL (14.0-18.0); LYMPHOCYTES 32.4 % (24.0-44.0); MCHC 30.9 g/dL (28.0-37.0); MCV 87.4 fL (80.0-100.0); MONOCYTES 8.6 % (1.0-8.0); PLATELET COUNT 171 thou/uL (150-400); POLYS 56.7 % (36.0-66.0); RBC 3.26 mil/uL (4.50-6.00); RDW 21.7 % (10.5-14.5); WBC 4.1 thou/uL (4.0-11.0)
[2018-11-15 17:43] LABS: INR 1.1; PROTIME 11.8 Seconds (9.3-11.4)
[2018-11-15 17:47] LABS: ANION GAP 10 mmol/L (7-16); BUN 142 mg/dL (7-18); CALCIUM 8.4 mg/dL (8.5-10.1); CHLORIDE 105 mmol/L (98-107); CO2 28 mmol/L (21-32); CREATININE 4.4 mg/dL (0.7-1.3); GLUCOSE 157 mg/dL (74-106); POTASSIUM 5.1 mmol/L (3.5-5.1); SODIUM 143 mmol/L (136-145)
[2018-11-15 17:52] LABS: ALBUMIN 3.4 g/dL (3.4-5.0); MAGNESIUM 1.9 mg/dL (1.8-2.4); SGOT 23 U/L (15-37); SGPT 19 U/L (30-65); TOTAL BILIRUBIN 0.4 mg/dL (<0.1-1.0); TOTAL PROTEIN 7.7 g/dL (6.4-8.2); TROPONIN-I <0.06 ng/mL (<0.06)
[2018-11-15 17:59] LABS: ANISOCYTOSIS 2+
[2018-11-15 18:00] LABS: TARGET CELLS OCCASIONAL
[2018-11-15 18:23] LABS: BE(vivo) -4.3 mmol/L (-2 to +3); HCO3 23.2 mmol/L (22.0-26.0); PCO2 55.5 mmHg (35.0-45.0); sO2 94.5 % (92.0-98.0)
[2018-11-15 18:24] LABS: pH 7.239 (7.360-7.450)
[2018-11-15 18:30] VITALS: BP 134/82
[2018-11-15 20:36] VITALS: BP 142/85
[2018-11-15 20:52] VITALS: BP 120/78
[2018-11-15 23:35] VITALS: BP 118/72
--- NOTE | 2018-11-16 05:09 | NUR ---
RECEIVED REPORT FROM ER NURSE. PT ADMITTED TO ROOM 360 AROUND 2044. ADMISSION HX AND ASSESSMENT COMPLETED CHARTED. A&OX4. C/O PAIN IN BLE DUE TO SWELLING. PAIN MEDICATION GIVEN WITH SOME RELIEF. LASIX GTT INFUSING PER ORDER. PACHECO TO DD WITH GOOD URINE OUTPUT. PT SLEPT MOST OF THE NIGHT. RESP EVEN AND UNLABORED. HE WORE BIPAP DURING THE NIGHT; TOLERATED WELL. VSS. AFEBRILE. FALL PRECAUTIONS IN PLACE. PROGRESSING TOWARD POC GOALS. WILL CONTINUE TO MONITOR FURTHER.
[2018-11-16 05:10] VITALS: BP 114/76
[2018-11-16 06:13] LABS: HEMATOCRIT 25.7 % (42.0-52.0); HEMOGLOBIN 7.7 gm/dL (14.0-18.0); MCH 26.2 pg (26.0-34.0); MCHC 30.1 g/dL (28.0-37.0); RBC 2.95 mil/uL (4.50-6.00); RDW 21.1 % (10.5-14.5); WBC 3.4 thou/uL (4.0-11.0)
[2018-11-16 06:33] LABS: ANION GAP 9 mmol/L (7-16); BUN 144 mg/dL (7-18); CALCIUM 8.5 mg/dL (8.5-10.1); CHLORIDE 107 mmol/L (98-107); CO2 29 mmol/L (21-32); CREATININE 4.2 mg/dL (0.7-1.3); GLUCOSE 105 mg/dL (74-106); POTASSIUM 4.8 mmol/L (3.5-5.1); SODIUM 145 mmol/L (136-145); TROPONIN-I <0.06 ng/mL (<0.06)
--- NOTE | 2018-11-16 08:09 | EKG ---
[address] [place] [address] ELECTROCARDIOGRAM REPORT Name: GUI BUTLER Room #: 360-P ADM IN M.R.#: [id number] Admission: 11/15/18 Attend Phys: Anatoliy Reddy MD Discharge: Date of : 61 Report #: [id number] THIS REPORT FOR: //name// [facility] ED Test Date: 2018-11-15 Test Time: 17:21:48 Pat Name: GUI BUTLER Department: Room: 360 Gender: M Billing Spec: FABIO : 1965 Requested By: Clayton Downs Order Number: [id number] MD: Anand Robledo Measurements Intervals [place] Rate: 70 P: 51 CT: 300 QRS: 67 QRSD: 107 T: 67 QT: 444 QTc: 480 Interpretive Statements Sinus rhythm with atrial premature complexes Prolonged CT interval Borderline prolonged QT interval Compared to ECG 10/12/2018 11:49:10 Atrial fibrillation no longer present Electronically Signed On 11-16-2018 8:09:19 ANIMAL HUSBANDMAN by Anand Robledo [email or web address] <ELECTRONICALLY SIGNED> By: Anand Robledo MD, [facility] [id number] 20 20 Anand Robledo MD, [facility] /EPI
[2018-11-16 08:25] VITALS: BP 124/72
--- NOTE | 2018-11-16 12:07 | NUR ---
ASSESSMENT: CM REVIEWED CHART AND MET WITH PATIENT AT THE BEDSIDE. PT REPORTS THAT HE LIVES IN A HOUSE ALONE. PT REPORTS 2 STEPS TO ENTER AND NO STEPS HE HAS TO USE ONCE INSIDE. PT REPORTS HE AMBULATES INDEPENDENTLY. PT STATES HE IS IN SERVICES WITH [facility] AND HE WANTS TO RESUME THIS AT DISCHARGE. CM CONTACTED [facility] TO SEND REFERRAL TO [facility]. PT REPORTS THAT HE IS INDEPENDENT WITH [facility]. PT HAS OXYGEN AT HOME WELL A BIPAP SUPPLIED THROUGH [facility]. PT REPORTS HE NORMALLY IS ON 6L OXYGEN AT HIS BASELINE. CM DISCUSSED ROLE. PLANS ARE FOR PATIENT TO LIKELY RETURN HOME WITH HH AT DISCHARGE. CM WILL CONTINUE TO FOLLOW TO ASSIST NEEDED.
[2018-11-16 13:00] VITALS: BP 117/64
--- NOTE | 2018-11-16 15:16 | NUR ---
dp sent referral to [facility] fax [phone]. CM/Nurse Eulalio Mendez spoke with facility.
--- NOTE | 2018-11-16 16:33 | NUR ---
PT IS PROGRESSING TOWARD POC GOALS. LASIX GTT INFUSING. BILATERAL LOWER EXTREMITIES REMAIN EDEMATOUS AND SANGEETHA WRAPS APPLIED PER ORDERS. PT C/O OF BILATERAL LOWER EXTREMITY PAIN, AND WAS MEDICATED PER MAR. 1,500 FLUID RESTRICTION MAINTAINED, GOOD UO IN CATHETER. PT IS RESTING COMFORTABLY AT THIS TIME, FALL PRECAUTIONS IN PLACE.
[2018-11-16 17:12] VITALS: BP 125/81
[2018-11-16 20:20] VITALS: BP 114/72
--- NOTE | 2018-11-17 03:25 | NUR ---
ASSUMED PT CARE AROUND 1900. A&OX4. PLEASANT AND COOPERATIVE. C/O PAIN IN BLE DUE TO SWELLING. PAIN MEDICATION GIVEN. SANGEETHA WRAPS IN PLACE TO BLE TO HELP WITH SWELLING. LASIX GTT INFUSING ORDERED. PACHECO TO DD WITH GOOD URINE OUTPUT. PT SLEPT MOST OF THE NIGHT ON THE BIPAP. TOLERATED WELL. FALL PRECAUTIONS IN PLACE. PT IS VERY COMPLIANT WITH PO FLUID RESTRICTION. PROGRESSING SLOWLY TOWARD POC GOALS. WILL CONTINUE TO MONITOR FURTHER.
[2018-11-17 04:39] VITALS: BP 101/63
--- NOTE | 2018-11-17 05:18 | NUR ---
PT REQUESTED TO HAVE SANGEETHA WRAPS TAKEN OFF HIS LEGS FOR A WHILE THIS MORNING. SANGEETHA WRAPS REMOVED. PT STILL ON BIPAP. STATES HE'S GOING BACK TO SLEEP. WILL CONTINUE TO MONITOR.
[2018-11-17 05:29] LABS: HEMATOCRIT 26.9 % (42.0-52.0); HEMOGLOBIN 8.2 gm/dL (14.0-18.0); MCH 26.5 pg (26.0-34.0); MCHC 30.7 g/dL (28.0-37.0); MCV 86.6 fL (80.0-100.0); RBC 3.11 mil/uL (4.50-6.00); RDW 21.5 % (10.5-14.5); WBC 5.2 thou/uL (4.0-11.0)
[2018-11-17 05:44] LABS: ALBUMIN 3.2 g/dL (3.4-5.0); CALCIUM 8.7 mg/dL (8.5-10.1); CREATININE 3.9 mg/dL (0.7-1.3); PHOSPHORUS 6.9 mg/dL (2.5-4.9); POTASSIUM 5.2 mmol/L (3.5-5.1)
[2018-11-17 07:41] VITALS: BP 104/61
[2018-11-17 11:22] VITALS: BP 101/62
--- NOTE | 2018-11-17 15:38 | NUR ---
PT CONTINUES ON DOUBLE CONCENTRATION LASIX GTT..DIURESING WELL...FLUID RESTRICTION 1500 ML/24 HRS...REFUSED SANGEETHA WRAPS TO LEGS ALSO REFUSED PILLOW UNDER LEGS/FEET...WILL MONITOR
--- NOTE | 2018-11-17 15:47 | NUR ---
ON-GOING ASSESSMENT: CM REVIEWED CHART AND MET WITH PATIENT. CM DISCUSSED THAT CM SPOKE WITH [facility] AND THEY ARE PROVIDING PALLIATIVE CARE SERVICES FOR PATIENT BUT THAT HE IS ALSO ABLE TO GET HH IN ADDITION TO THIS AND PATIENT WOULD LIKE HH SERVICES. CM DISCUSSED THAT [facility] STATES THEY DO NOT DO HH, REFERRAL WAS SENT TO [facility]. [facility] ASKING TO VERIFY PCP. CM SPOKE WITH PATIENT AND HE REPORTS HE REALLY DOES NOT CURRENTLY HAVE PCP. [facility] STATING DR. TAYLOR BUTLER WAS LISTED AND HE WOULD FOLLOW PATIENT UNTIL HE WAS ABLE TO ESTABLISH PCP. CM CONTACTED [facility] AND ASKED TO SCHEDULE AN APPT WITH DR. GALLARDO TO ESTABLISH PCP (CM SPOKE WITH [facility] AND HE WAS OK WITH APPT WITH HIM TO ESTABLISH PCP AND THEN FOLLOW FOR HH). CM MADE APPT WITH NURSE PRACTIONER NAVDEEP SAGE WednesdayNov AT [address] GALLARDO WILL BE HIS PCP. CM NOTIFIED PATIENT AND [facility]. CM WILL CONTINUE TO FOLLOW.
[2018-11-17 16:25] VITALS: BP 108/65
[2018-11-17 19:25] VITALS: BP 115/67
[2018-11-17 23:55] VITALS: BP 107/65
[2018-11-18 02:12] LABS: URINE CLARITY SL.CLOUDY; URINE COLOR YELLOW; URINE SPECIFIC GRAVITY >= 1.030 (1.005-1.035)
[2018-11-18 02:13] LABS: URINE GLUCOSE-RANDOM* NEGATIVE (Negative); URINE KETONES NEGATIVE (Negative); URINE PROTEIN (DIPSTICK) 2+ (Negative)
[2018-11-18 02:14] LABS: URINE BILIRUBIN NEGATIVE (Negative); URINE BLOOD 3+ (Negative); URINE LEUKOCYTES-REFLEX NEGATIVE (Negative); URINE NITRITE-REFLEX NEGATIVE (Negative); URINE UROBILINOGEN 0.2 E.U./dl (0.2-1.0)
[2018-11-18 02:16] LABS: AMORPHOUS URATES Few /LPF (None Seen); BACTERIA-REFLEX 1-9 Few /HPF (None Seen); CRYSTALS None Seen /LPF (None Seen); HYALINE CASTS 4-10 Moderate /LPF (None Seen); MUCUS None Seen strn/LPF (None Seen); SQUAMOUS None Seen /LPF (0-3); URINE WBC-REFLEX 0-5 Rare /HPF (0-5)
--- NOTE | 2018-11-18 03:08 | NUR ---
patient is alert and oriented. patients legs are elevated. patient co of pain in lower extremities. patient has temp tylenol given and provider notified. patient is q2turn. patient is on bipap hs. patient is a fib on tele (patient has a hx). patients lbm was the 3rd patient is incontient. patient is on 6l nc during the day. patient is (-) for dvts. patient is on lasix drip. patient is on 1500ml fluid restion and has a willis. patient refused linda wraps due to pain. patient pain is controlled with pain meds. patient is resting comfortabley in bed. wcm. patient is progressing to goals.
[2018-11-18 04:35] VITALS: BP 105/64
[2018-11-18 07:17] LABS: ALBUMIN 3.1 g/dL (3.4-5.0); CALCIUM 8.4 mg/dL (8.5-10.1); CREATININE 4.7 mg/dL (0.7-1.3); PHOSPHORUS 7.6 mg/dL (2.5-4.9); POTASSIUM 4.8 mmol/L (3.5-5.1)
[2018-11-18 07:33] LABS: HEMATOCRIT 27.3 % (42.0-52.0); HEMOGLOBIN 8.5 gm/dL (14.0-18.0); MCH 27.2 pg (26.0-34.0); MCHC 31.1 g/dL (28.0-37.0); MCV 87.4 fL (80.0-100.0); PLATELET COUNT 203 thou/uL (150-400); RBC 3.12 mil/uL (4.50-6.00); RDW 21.2 % (10.5-14.5); WBC 7.2 thou/uL (4.0-11.0)
[2018-11-18 07:39] VITALS: BP 97/60
[2018-11-18 07:56] LABS: ABSOLUTE NEUTROPHILS 3.6 thou/uL (1.4-8.2); ANISOCYTOSIS 2+; ATYPICAL LYMPHS 2 %; HYPOCHROMASIA 1+; METAMYELOCYTES 1 %; NUCLEATED RBCS 1 /100WBC
[2018-11-18 10:57] VITALS: BP 89/59
--- NOTE | 2018-11-18 13:46 | NUR ---
ON-GOING ASSESSMENT: CM REVIEWED CHART AND MET WITH PATIENT AT THE BEDSIDE. PT IS SLOWLY PROGRESSING TOWARDS DISCHAGRE GOALS. CM SPOKE WITH ATTENDING WHO STATES PATIENT WILL BE HERE THROUGH THE WEEKEND PATIENTS CREATININE IS ELEVATED. CM WILL FOLLOW UP ON WEDNESDAY. [facility] CONTINUING TO FOLLOW PATIENT.
[2018-11-18 16:23] VITALS: BP 88/45
--- NOTE | 2018-11-18 16:57 | NUR ---
PT CARE ASSUMED AT 0700. PT ALERT AND ORIENTED X4. DENIES SOA. C/O CONSTANT PAIN 10/10 TO BLE. MEDICATED OFTEN WITH MORPHINE. SBP FLUCTUATING BETWEEN HIGH 80S AND LOW 90S. PARAMETERS TO DIURETICS ORDER RECEIVED FROM DR KINGSLEY. NO DIURETICS DUE AT THIS TIME WHILE SBP IS HIGH 80S BUT WILL MONITOR. PT IS ALSEEP AND DOES NOT APPEAR DIAPHORETIC. VS OTHERWISE STABLE. TURNING PT Q2HRS AND PRN. TOO WEAK TO AMBULATE WITH PT/OT THIS SHIFT. PT REFUSED SANGEETHA WRAP TO BLE THIS SHIFT. PT VOMITED ONCE WHILE WORKING WITH OT. DENIES NAUSEA AND NO VOMITING SINCE ANTIEMETIC SERVICE CENTER TECHNICIAN. IV LASIX GTT REMAINS. PACHECO PATENT. PT DENIES QUESITONS AND CONCERNS REGARDING POC AT THIS TIME. NO DISTRESS NOTED.
--- NOTE | 2018-11-18 17:35 | NUR ---
DR KINGSLEY NOTIFIED OF INADEQUATE UOP FOR SHIFT TOTAL. POSITIVE FLUID BALANCE NOTED AND DR FITZGERALD. PT ASYMPTOMATIC OF FLUID RETENTION.
--- NOTE | 2018-11-18 18:00 | NUR ---
PT C/O SOA AND NOT MAINTAINING NORMAL O2 SATS. RT CALLED TO PUT PT ON BIPAP. DR KINGSLEY NOTIFIED OF CLINICAL CHANGES. PCXR ORDERED STAT. WILL MONITOR.
[2018-11-18 18:17] VITALS: BP 113/67
--- NOTE | 2018-11-18 19:02 | NUR ---
PCXR COMPLETED WILL ASK NOC NURSE TO F/U WITH RESULTS. PT RESTING COMFORTABLY ON BIPAP.
--- NOTE | 2018-11-18 19:39 | NUR ---
called cxr results to provider. antibiotics started. monitor willis output. encourage po intake. no iv fluids. patient on bipap. lung are now wheezy. bp 109/63. wcm.
[2018-11-18 19:41] VITALS: BP 109/63
[2018-11-19 01:48] VITALS: BP 113/56
--- NOTE | 2018-11-19 04:05 | NUR ---
PATIENT IS ALERT TO SELF AND PLACE. PROVIDER AWARE OF LOC CHANGE. PATIENT CAN TURN SELF. PATIENT IS ST ON TELE. PATIENTS LBM WAS THE 3RD. PATIENT STILL HAS LOW OUTPUT IN PACHECO. LUNGS IMPROVED AFTER ANTIBIOTICS. PATIENT REFUSED BIPAP. PATIENT MEET FLUID RESTRICTION AT 0300. CXR RESULTS CALLED TO PROVIDER. PATIENT IS RESTING IN BED. NO PAIN TONIGHT. WCM. BLOOD PRESSURES HAVE INPROVED. PATIENT IS NOT PROGRESSING TO GOALS.
[2018-11-19 05:21] LABS: HEMATOCRIT 28.1 % (42.0-52.0); HEMOGLOBIN 8.6 gm/dL (14.0-18.0); MCH 27.2 pg (26.0-34.0); MCHC 30.7 g/dL (28.0-37.0); MCV 88.7 fL (80.0-100.0); RBC 3.17 mil/uL (4.50-6.00); RDW 21.1 % (10.5-14.5); WBC 6.3 thou/uL (4.0-11.0)
[2018-11-19 05:44] LABS: CALCIUM 8.4 mg/dL (8.5-10.1); PHOSPHORUS 8.6 mg/dL (2.5-4.9)
[2018-11-19 05:46] LABS: CREATININE 5.7 mg/dL (0.7-1.3)
[2018-11-19 05:48] LABS: POTASSIUM 6.3 mmol/L (3.5-5.1)
[2018-11-19 07:37] VITALS: BP 93/44
[2018-11-19 11:30] VITALS: BP 83/46
[2018-11-19 16:10] VITALS: BP 101/57
--- NOTE | 2018-11-19 18:46 | NUR ---
PT ALERT AND ORIENTED TIMES FOUR WITH PERIODS OF CONFUSION. VSS, 93%6L, SR ON TELE. PACHECO TO DD LOW OUTPUT 100CC THIS SHIFT. C/O PAIN MEDICATIONS GIVEN WITH SOME RELEIF. PT HAS HAD POOR APPETITE THIS SHIFT. PT HAS TOLERATED MEDS. PT NOT PROGRESSING TOWRADS POC GOALS AT THIS TIME.
[2018-11-19 20:25] VITALS: BP 101/63
[2018-11-20 00:06] VITALS: BP 101/59
--- NOTE | 2018-11-20 05:06 | NUR ---
PATIENT IS ADVANCING VERY SLOWLY IN HIS CARE PLAN. VITAL SIGNS STABLE WITH PATIENT HAVING NO COMPLAINTS OF NAUSEA. PATIENT DID COMPLAIN OF BACK PAIN FREQUENTLY WHICH WAS TREATED WITH MEDICATIONS AND REPOSITIONING. BREATHING STABLE ONCE PLACED ON CPAP EVIDENCED BY READINGS ON CONTINUOUS PULSE OX. ORIENTED TIMES TWO TO THREE WITH SOME CONFUSION AND DROWSINESS, PATIENT WAS MOSTLY UNABLE TO PARTICIPATE IN CARE PLAN. PATIENT HAS BEEN UNABLE TO TRANSFER FROM BED TONIGHT DUE TO WEAKNESS. LIMITED URINATION THROUGH CATHETER WITH LASIX GTT ONGOING. NEPHROLOGY HAS BEEN CONSULTED PRIOR TO SHIFT AND PATIENT IS SUPPOSED TO BE MULLING POTENTIAL DIALYSIS. CONTINUE PLAN OF CARE.
[2018-11-20 05:28] VITALS: BP 90/47
[2018-11-20 06:53] LABS: CALCIUM 8.2 mg/dL (8.5-10.1); PHOSPHORUS 9.7 mg/dL (2.5-4.9)
[2018-11-20 06:57] LABS: CREATININE 7.4 mg/dL (0.7-1.3)
[2018-11-20 06:58] LABS: POTASSIUM 6.5 mmol/L (3.5-5.1)
[2018-11-20 07:38] VITALS: BP 99/53
[2018-11-20 08:17] LABS: INR 1.1; PROTIME 11.8 Seconds (9.3-11.4)
[2018-11-20 11:25] VITALS: BP 103/59
--- NOTE | 2018-11-20 14:42 | NUR ---
PT ALERT AND ORIENTED TIMES FOUR WITH PERIODS OF CONFUSION. VSS, 91%6L, SR ON TELE. LASIX GTT INFUSING PER ORDER. PT TOLERTAES MEDS. POOR APPETITE AGAIN TODAY. NPO AFTER MIDNIGHT TONIGHT FOR DIALYSIS CATH TOMORROW. PT NOT PROGRESSING TOWRADS GOALS AT THIS TIME.
[2018-11-20 17:05] VITALS: BP 110/55
--- NOTE | 2018-11-20 18:15 | NUR ---
PT WITH 20 ML OUTPUT PER PACHECO..LASIX GTT INFUSING..PLANS FOR DIALYSIS CATH IN AM...
[2018-11-20 19:40] VITALS: BP 97/50
[2018-11-21] VITALS (99 sets, daily range): BP systolic 75–127; BP diastolic 43–88
[2018-11-21 04:25] LABS: HEMATOCRIT 28.2 % (42.0-52.0); HEMOGLOBIN 8.5 gm/dL (14.0-18.0); MCH 26.8 pg (26.0-34.0); MCHC 30.3 g/dL (28.0-37.0); MCV 88.5 fL (80.0-100.0); RBC 3.18 mil/uL (4.50-6.00); RDW 21.2 % (10.5-14.5); WBC 6.9 thou/uL (4.0-11.0)
[2018-11-21 04:55] LABS: ALBUMIN 2.8 g/dL (3.4-5.0); CALCIUM 8.4 mg/dL (8.5-10.1); PHOSPHORUS 10.2 mg/dL (2.5-4.9)
[2018-11-21 05:22] LABS: POTASSIUM 6.7 mmol/L (3.5-5.1)
--- NOTE | 2018-11-21 05:37 | NUR ---
PATIENT IS NOT PROGRESSING IN HIS CARE PLAN. VITAL SIGNS MOSTLY STABLE WITH PATIENT HAVING NO COMPLAINTS OF NAUSEA. PATIENT DID COMPLAIN OF PAIN WIN LEFT ARM AND BACK WHICH WAS TREATED WITH MEDICATION. PATIENT IS ORIENTED TO PERSON AND PLACE AND SITUATION BUT HAS MANY PERIODS OF CONFUSION AND LETHARGY. BREATHING STABLE ON BIPAP THROUGHOUT SHIFT EVIDENCED BY READINGS IN MID 90'S ON CONTINUOUS SAT MONITOR. PATIENT IS RELUCTANT TO MOVE FROM POSITION DUE TO PAIN, AND REFUSES TURNS. MINIMAL URINARY OUTPUT, PROVIDERS ALREADY AWARE. PATIENT HAS BEEN NPO SINCE MIDNIGHT IN PREP OF TODAYS PROCEDURE. CRITICAL HIGH POTASSIUM LAB THIS MORNING, PATIENT IS TO DIALYZE TODAY.
[2018-11-21 08:00] LABS: BE(vivo) -4.8 mmol/L (-2 to +3); HCO3 24.3 mmol/L (22.0-26.0); PO2 114.9 mmHg (80.0-100.0); sO2 96.9 % (92.0-98.0)
[2018-11-21 08:03] LABS: pH 7.164 (7.360-7.450)
--- NOTE | 2018-11-21 08:15 | NUR ---
PT SEEN BY DR REYNA..ORDERED STAT ABG..INSULIN..D50 AND ALB TX..ALL ADMINISTERED...ABG RESULTS CALLED TO DR RIVERA AND ORDERS RECEIVED FOR IMMEDIATE TX TO ICU..BED OBTAINED AND PATIENT TX TO 237..REPORT GIVEN AT BEDSIDE TO ARSH...
--- NOTE | 2018-11-21 08:26 | NUR ---
PT TRANSFERRED TO ICU; O.T. ON HOLD DUE TO CHANGE IN STATUS; RESUME O.T. WITH NEW DOCTOR ORDERS WHEN/IF APPROPRIATE.
--- NOTE | 2018-11-21 08:36 | NUR ---
Pt TRANSFERRED TO ICU. WILL PLACE ON HOLD AND AWAIT NEW ORDERS WHEN APPROPRIATE FOR THERAPY
--- NOTE | 2018-11-21 08:45 | NUR ---
PT ADMITTED FROM 3W DUE TO RESPIRATORY DISTRESS. PER ABG'S AND ELECTROLYTES PT IS IN NEED OF DIAYLSIS. DR. REYNA HAS REQUESTED THE IR DEPT TO PLACE AN TEMPORARY DIAYLSIS CATHETER. PT IS PRESENTLY ON BIPAP @ 50%. ORIENT TO SELF. PLACED ON THE MONITOR AND SHOWS 1ST DEGREE BLOCK. SBP 126/65. LUNGS SOUND DIMISHED BUT CLEAR. HE HAS GENERALIZED AND PITTING EDEMA. HE ONLY HAS A PIV AND ON LASIX. HE MOANS WITH ANY TOUCHING. HIS BELONGINGS ARE HERE. HE HAS 2 BLACK PHONES AND 2 CHARGERS. BROWN GLASSES BLACK FLIPFLOP, AND A BAG OF CLOTHES.
--- NOTE | 2018-11-21 09:00 | NUR ---
CALL FROM DR RIVERA ORDERS FOR A TEMPORARY DIAYLSIS CATHETER PLACED STAT IR INFORMED OF ORDER CHANGE. WILL CONT TO MONITOR.
--- NOTE | 2018-11-21 12:38 | NUR ---
Assess due to class III obesity. Admitted with CHF, acute respiratory failure, and CKD. Transferred to ICU this am. Will need temp dialysis cath for dialysis. Fluid overload. Wts up ~35 lb, requires lasix. NPO after MN for procedure, then will likely resume renal diet order. Appetite has been poor past few days. Continue to follow. Low nutrition risk
--- NOTE | 2018-11-21 14:36 | NUR ---
PT LAMINE DIALYSIS, VSS NOW WE DID HAVE TO GIVE ALBUMIN DURING PROCEDURE. 1 LITER WAS REMOVED. PT SEENS MENTALLY IMPROVED. MONITOR SHOWS ST. DR GALAVIZ HERE EARLIER. WILL CONT TO MONITOR.
[2018-11-21 20:08] LABS: HEP B SURFACE Ab(ANTI-HBS Non Reactive (()); HEPATITIS B SURFACE AG Negative (Negative)
[2018-11-22] VITALS (87 sets, daily range): BP systolic 92–133; BP diastolic 52–91
--- NOTE | 2018-11-22 05:03 | NUR ---
ASSUMED CARE @1900 11/21/18, PT ASSESSMENTS AND VSS COMPLETE PER ICU PROTOCOL. PT ALERT TO SELF ONLY, VERY CONFUSED DURING THE SHIFT, BUT ABLE TO FOLLOW COMMANDS AEB SQUEEZING HANDS AND MOVING FEET. PT ON BIPAP, SATS IN THE HIGH 90'S, PT TOLERATING WELL. PT EDEMATOUS BLE, SANGEETHA WRAPS IN PLACE, PT AFEBRILE. PACHECO IN PLACE, PT NPO, Q6H ACCUCHECKS, FALL PRECAUTIONS IN PLACE. PLAN OF CARE CONT TO MONITOR.
[2018-11-22 05:08] LABS: ADENOVIRUS Negative (Negative); INFLUENZA A Negative (Negative); INFLUENZA B Negative (Negative); METAPNEUMOVIRUS Negative (Negative); PARAINFLUENZA 1 Negative (Negative); PARAINFLUENZA 2 Negative (Negative); PARAINFLUENZA 3 Negative (Negative); RHINOVIRUS Negative (Negative); RSV A Negative (Negative); RSV B Negative (Negative)
[2018-11-22 05:12] LABS: HEMATOCRIT 27.8 % (42.0-52.0); HEMOGLOBIN 8.6 gm/dL (14.0-18.0); MCH 26.7 pg (26.0-34.0); MCHC 30.8 g/dL (28.0-37.0); MCV 86.9 fL (80.0-100.0); RBC 3.2 mil/uL (4.50-6.00); WBC 6.1 thou/uL (4.0-11.0)
[2018-11-22 05:30] LABS: ALBUMIN 3.1 g/dL (3.4-5.0); CALCIUM 8.3 mg/dL (8.5-10.1); CREATININE 6.4 mg/dL (0.7-1.3); PHOSPHORUS 9.2 mg/dL (2.5-4.9); POTASSIUM 5.9 mmol/L (3.5-5.1)
[2018-11-22 07:50] LABS: BE(vivo) -3.1 mmol/L (-2 to +3); HCO3 25.1 mmol/L (22.0-26.0); PCO2 63.5 mmHg (35.0-45.0); PO2 104.4 mmHg (80.0-100.0); sO2 96.5 % (92.0-98.0)
[2018-11-22 07:51] LABS: pH 7.214 (7.360-7.450)
--- NOTE | 2018-11-22 12:00 | NUR ---
PATIENT REMAINS AWAKE AND CONFUSED AT THIS TIME. PLEASANT AND COOPERATIVE WITH CARES. PATIENT IN PAIN WHEN TOUCHED BUT OTHERWISE HE HAS NO PAIN. PATIENT IS RECEIVING DIALYSIS TODAY AND IS TOLERATING WELL. NO OTHER CONCERNS AT THIS TIME. WILL CONTINUE TO MONITOR AND CARE PER PLAN OF CARE.
[2018-11-23] VITALS (17 sets, daily range): BP systolic 92–127; BP diastolic 55–76
[2018-11-23 05:04] LABS: HEMATOCRIT 27.6 % (42.0-52.0); HEMOGLOBIN 8.4 gm/dL (14.0-18.0); MCH 26.6 pg (26.0-34.0); MCHC 30.6 g/dL (28.0-37.0); MCV 86.9 fL (80.0-100.0); RBC 3.18 mil/uL (4.50-6.00); RDW 20.5 % (10.5-14.5)
[2018-11-23 05:14] LABS: CALCIUM 8.6 mg/dL (8.5-10.1)
[2018-11-23 05:31] LABS: CREATININE 4.8 mg/dL (0.7-1.3)
--- NOTE | 2018-11-23 05:46 | NUR ---
ASSUMED CARE @ 1900 11/22/18, PT ASSESSMENTS AND VSS COMPLETE PER ICU PROTOCOL. PT ALERT TO SELF ONLY AT INITIAL ASSESSMENT, BUT CALM WHEN RE-ORIENTED. BUT AT NOON PT BECOMES VERY RESTLESS, AGITATED AND STARTS TO TAKE OFF BIPAP MASK, PT IS RE-ORIENTED, HE REFUSES TO PUT BIPAP MASK ON, PT STARTS TO DESAT, A HIGH FLOW NC , IS PLACED ON HIM AT 10 L, PT SATS COME UP TO THE HIGH 90'S AND HAS MAINTAINED EVER SINCE. PT IS ABLE TO FOLLOW COMMANDS AEB SQUEEZING HANDS AND MOVING FEET, PT IS VERY WEAK. AFEBRILE, EDEMATOUS (SEE INTERVENTION). Q6H ACCUCHECKS, NO INTERVENTION NEEDED. PACHECO IN PLACE, FALL PRECAUTIONS IN PLACE. PLAN OF CARE- CONT TO WEAN OF 02 (BASELINE 5L NC).
--- NOTE | 2018-11-23 18:39 | NUR ---
ASSUMED CARE AT 0700. PT ALERT TO SELF BUT VERY CONFUSED TO WHERE HE WAS AND WHY. PT WAS ON 10L HF NC AT BEGINNING OF SHIFT. PT WAS HAD O2 SAT >95% SO RT LOWERED PT'S O2 TO 6L HF. PT HAS REMAINED AT >95% SPO2 THIS ENTIRE SHIFT. PT IS NOW ORIENTED TO PERSON AND PLACE. PT STILL REMAINS OFF ON TIME AND SITUATION. PT HAD DIALYSIS TODAY AND HAD 1.5L REMOVED. PT TOLERATED WITHOUT INCIDENT. PLAN IS TO HAVE IR REMOVE TEMP DIALYSIS CATHETER TOMORROW AND PLACE PERMANENT DIALYSIS TUNNELED CATHETER. PT VERY TEARFUL TODAY. PT STATES HE DOES NOT WANT TO . PT ATE BREAKFAST AND LUNCH TODAY.
[2018-11-24] VITALS (44 sets, daily range): BP systolic 86–125; BP diastolic 45–80
--- NOTE | 2018-11-24 04:40 | NUR ---
ASSUMED CARE @ 1900 11/23/18, PT ASSESSMENTS AND VSS COMPLETE PER ICU PROTOCOL, PT ALERT TO SELF AND LOCATION, PT STILL A BIT CONFUSED ABOUT SITUATION AND PATTERN OF EVENTS. PT ABLE TO FOLLOW COMMANDS. PT ON 8L HIGH FLOW NC, BASELINE 5 LITERS, SATS IN THE HIGH 90'S. PT ALLOWED ONLY 2 HOURS OF BIPAP THERAPY DURING THE SHIFT. PT IS AFEBRILE, EDEMATOUS (SEE PROCESS INTERVENTIONS FOR SPECIFICS). PT KEPT NPO AFTER MIDNIGHT IN ANTICIPATION OF TUNNELED CATH PLACEMENT TODAY. LEGS WRAPPED IN SANGEETHA WRAPS FOR EDEMA. PACHECO IN PLACE, FALL PRECAUTIONS IN PLACE. FRIEND HERE TO VISIT DURING THE SHIFT. PLAN OF CARE-CONT TO TITRATE 02 DOWN TO BASELINE.
[2018-11-24 05:27] LABS: CALCIUM 8.9 mg/dL (8.5-10.1); POTASSIUM 3.9 mmol/L (3.5-5.1)
[2018-11-24 05:30] LABS: CREATININE 3.3 mg/dL (0.7-1.3)
[2018-11-24 07:39] LABS: BE(vivo) 3.4 mmol/L (-2 to +3); HCO3 30.3 mmol/L (22.0-26.0); PCO2 59.9 mmHg (35.0-45.0); PO2 60.8 mmHg (80.0-100.0); sO2 88.8 % (92.0-98.0)
[2018-11-24 07:40] LABS: pH 7.322 (7.360-7.450)
--- NOTE | 2018-11-24 14:24 | NUR ---
PT TRANSFERRED TO ICU PRODUCTION FINISHER 11/21 WITH RESP FAILLURE, FLUID OVERLOAD. FIRST DIALYSIS 11/21 AND DAILY SINCE. PLAN FOR TUNNELLED DIALYSIS CATH IN IR 11/25. ON BIPAP. COMPLETED AD/MEDICAL DPOA DOCUMENT NAMING HIS SISTER PRIYANKA AND DOCUMENT IN CHART. LEFT FOR PRIYANKA [phone] AND WILL GET HER A COPY OF DOCUMENT WHEN SHE CALLS BACK.
--- NOTE | 2018-11-24 19:15 | NUR ---
Pt confused at the beginning of the shift but became alert and oriented as the day progressed. Placement of tunneled dialysis catheter was delayed until tomorrow. Consent was obtained. Atrial flutter at controlled rate Pt placed on BIPAP in the morning post ABG. Pt would not wear until provided with type of mask that covers only nose and leaves mouth uncovered. Taken off BIPAP per request at approximately 1630. Diet was resumed post dialysis treatment at evening meal. Pt had dialysis treatment with reported removal of 3 liters. Family members by to visit. Pt talked on cell phone much of day. marketing analytics manager (Sadie) assisted [facility] completion of advanced directive and appointment of DPOA today. Report given to RN assuming care.
--- NOTE | 2018-11-24 23:31 | EKG ---
[address] [address] ELECTROCARDIOGRAM REPORT Name: GUI BUTLER Room #: 237-P ADM IN M.R.#: [id number] Admission: 11/15/18 Attend Phys: Anatoliy Reddy MD Discharge: Date of : 61 Report #: [id number] THIS REPORT FOR: //name// [facility] Test Date: 2018-11-24 Test Time: 12:00:21 Pat Name: GUI BUTLER Department: Room: 237 P Gender: M Sales Service Supervisor: Sharif GALLAGHER : 1965 Requested By: Kevin Gorman Order Number: [id number] MD: Martinez Mohamud Measurements Intervals [place] Rate: 70 P: [place]: QRS: 59 QRSD: 97 T: 86 QT: 445 QTc: 481 Interpretive Statements Sinus rhythm Compared to ECG 11/15/2018 17:21:48 Electronically Signed On 11-24-2018 23:30:56 REAMING MACHINE OPERATOR by Martinez Mohamud [email or web address] <ELECTRONICALLY SIGNED> By: Martinez Mohamud MD 11/24/18 2330 1200 99 Martinez Mohamud MD /LICO
[2018-11-25] VITALS (37 sets, daily range): BP systolic 104–141; BP diastolic 53–88
[2018-11-25 05:49] LABS: CALCIUM 8.9 mg/dL (8.5-10.1); CREATININE 2.6 mg/dL (0.7-1.3); POTASSIUM 3.7 mmol/L (3.5-5.1)
--- NOTE | 2018-11-25 06:48 | NUR ---
ASSUMED CARE OF PT AT 1900. PT ORIENTED X4. ABLE TO FOLLOW COMMANDS. PT CALM AND COOPERATIVE FOR THE MOST PART, BUT AT TIMES IRRITABLE. PT SR ON THE MONITOR. VSS. HAS C/O PAIN THROUGH OUT THE NIGHT ON HIS RIGHT UPPER EXTREMETY. ACTIVE BOWEL SOUNDS. NO BM. OLIGURIC. NO NEW SKIN ISSUES. PT MAKING PROGRESS TOWARDS GOALS.
--- NOTE | 2018-11-25 16:41 | NUR ---
Assumed care of patient at 0700. Patient currently undergoing dialysis as ordered. Tolerated treatment with no problems, 2L off. Also went to IR for tunnelled dialysis cath today, tolerated well. Has orders to dialyze again tomorrow. Still continues to c/o left arm pain, venous dopplers negative. Off bipap at 1030, has been tolerated NC since. He will continue with bipap at HS or PRN sleeping. Low urine output. Ok'd to move out of ICU. Report called to Octavia Zuniga RN. Will move to rooms 210. Patient has two cell phones, two chargers, and bag of clothing in his possessional at time of transfer.
--- NOTE | 2018-11-25 18:47 | NUR ---
PT TRANSFER TO THIS UNIT AT APPROX 1750. PT A&OX4, BEDREST. PT VITALS WNL AND IS SA AND AFIB ON TELEMETRY. PT HAS SOME PAIN AND SWELLING IN LEFT ARM AND AN ULTRA SOUND WAS NEG FOR DVT. PT HAS GOOD APPETITE, ON 7LO2 AND HAS A PACHECO. WILL CONT WITH POC.
--- NOTE | 2018-11-26 04:06 | NUR ---
ASSUMED PT CARE AT 1900. VSS. PT A&OX4. ASSESSMENTS ARE CHARTED. PT REQUIRED 3 UNITS OF INSULIN TONIGHT. PT USED BIPAP AT [facility]. PT REQUESTED TO DANGLE AT THE SIDE OF THE BED, THIS WAS SUCCESSFUL FOR A SHORT PERIOD. HE REQUESTED TO USE TO BEDSIDE COMMODE BUT HE WAS NOT STRONG ENOUGH TO GET UP. STILL NO BM SINCE HIS LAST. PT WAS ON 7L O2 AT START OF SHIFT BEOFORE CHANGING TO BIPAP FOR SLEEP. PT STILL COMPLAINS OF WEAKNESS IN FEET AND SOME PAIN IN THE KNEE. HE IS REALLY CONCERND ABOUT REGAINING HIS STREGHT BACK AND BEING ABLE TO WALK. NO DISTRESS NOTED, WILL CONTINUE TO MONITOR PER POC.
[2018-11-26 04:56] VITALS: BP 109/59
--- NOTE | 2018-11-26 05:20 | NUR ---
PT WANTED TO USE THE BEDSIDE COMMODE, WE ATTEMPTED TO GET HIM, HE GOT UP HALF-WAY AND SAT BACK DOWN HALF-WAY ON THE BED. PT HAD HAD MADE A COMMENT THAT HE THOUGHT HE FELL, BUT THERE WAS NO INCIDENT OF FALL. PT REQUIRED X3 ASSIST TO GET BACK IN BED IN A LAYING POSITION.
[2018-11-26 08:00] VITALS: BP 132/74
[2018-11-26 16:00] VITALS: BP 101/54
--- NOTE | 2018-11-26 17:21 | NUR ---
VSS REMAINS NSR, SINUS ARRHYTHMIA WITH 1% AV BLOCK, LUNGS DIMINISHED AND CLEAR,O2 SAT 5L IS 91-97%, PACHECO INTACT DRAINING QS, DIALYSIS TODAY, TOOK OFF 2.5 L. LEFT ARM AND BILATERAL LEGS REMAIN EDEMATOUS/SANGEETHA WRAPS ON LEGS. WILL CONTINUE TO MONITER AND CARE FOR PT PER PLAN OF CARE
[2018-11-26 20:43] VITALS: BP 122/68
[2018-11-27 05:24] VITALS: BP 131/77
--- NOTE | 2018-11-27 07:55 | NUR ---
ASSUMED PT CARE AT 1900. VSS. PT A&0X4. PT HAD VERY MINIMAL URINE OUTPUT. EDEMA STILL PRESENT IN BILATERAL LOWER EXTREMITIES AND LEFT ARM. PT IS STILL CONCERNED ABOUT GAINING HIS STRENGHT BACK. ASSESSMENTS AND MEDS GIVEN ARE DOCUMENTED. PT COMPLAINS OF PAIN IN LEFT ARM, FENTANYL HAS BEEN EFFECTIVE TO TREAT PAIN. PT IS STABLE, WILL CONTINUE TO MONITOR PER POC.
[2018-11-27 08:03] VITALS: BP 149/85
[2018-11-27 11:53] VITALS: BP 109/62
[2018-11-27 16:00] VITALS: BP 118/64
[2018-11-27 19:19] VITALS: BP 117/63
--- NOTE | 2018-11-27 20:03 | NUR ---
ASSUMED PATIENT CARE THIS AM. PATIENT LYING IN BED, A&O. NC @ 5L. PATIENT SIDE OF BED WITH PHYSICAL THERAPY THIS MORNING. PATIENT TOLERATING DIET. PACHECO CATHETER DISCONTINUED PER DR. REYNOLDS AROUND 1300.
[2018-11-28 04:17] LABS: HEMATOCRIT 27.6 % (42.0-52.0); HEMOGLOBIN 8.2 gm/dL (14.0-18.0); MCHC 29.9 g/dL (28.0-37.0); MCV 87.2 fL (80.0-100.0); RBC 3.17 mil/uL (4.50-6.00); WBC 6.1 thou/uL (4.0-11.0)
[2018-11-28 04:45] LABS: ALBUMIN 2.6 g/dL (3.4-5.0); CALCIUM 9.1 mg/dL (8.5-10.1); CREATININE 3.5 mg/dL (0.7-1.3); PHOSPHORUS 3.8 mg/dL (2.5-4.9); POTASSIUM 3.6 mmol/L (3.5-5.1)
[2018-11-28 05:07] VITALS: BP 122/74
--- NOTE | 2018-11-28 06:25 | NUR ---
ASSUMED PT CARE AT 1900 WITH BEDSIDE REPORT TAKEN, PT IS DROWSY, NO SIGN OF DISTRESS NOTED IN PT. PT IS ALERT AND ORIENTED WITH NO SIGN OF DISTRESS NOTED IN PT, DENIES ANY NEED AT THIS TIME, BLOOD SUGAR CHECKED. SCHEDULED MED ADMINISTERED TO PT. PT IS LAYING IN BED COMFORTABLY. BIPAP PLACED ON PT BEFORE BEDTIME. DENIES ANY FURTHER NEEDS AT THIS TIME.
[2018-11-28 07:55] VITALS: BP 129/75
--- NOTE | 2018-11-28 11:17 | NUR ---
Followup: pt continues on renal diet, has had several consecutive days dialysis, fluid overload. Wt is coming down to 315 lb, extreme class III obesity. Tolerating diet well, eating high protein foods, had no dietary questions. Remains low nutrition risk
[2018-11-28 11:52] VITALS: BP 117/64
--- NOTE | 2018-11-28 15:36 | NUR ---
Met with patient and discussed rehab and community dialysis. Discussed [facility] locations and patient interested in [facility] [facility]. Sp with Jenelle STEELE at clinic. 2 times offered for patient and he is interested in T, Th, Sat 1100 time for patient. Sent referral and pertinent information for clinic. Patient reports he was here in 2015 he believes and was able to transition to [facility] acute rehab. he is praying he will be a candidate for [facility] and insurance will auth for his transition to 5N. He reports he rec very good rehab care and able to dc home soon. He feels he needs nephrology to cont to see him daily as well as other phys here at hospital. [facility] in process of evaluation. Patient has [facility] post acute care list.
--- NOTE | 2018-11-28 18:35 | NUR ---
VSS REMAINS SINUS ARRHYTMIA WITH 1% AV BLOCK, LUNGS DIMINISHED, O2 SAT 5L DIALYSIS TODAY REMOVED 3L, NO URINE OUTPUT THIS SHIFT. PT IN TO SEE PT, ELIZABETHES SIDE OF BED. WILL CONTINUE TO MONITER AND CARE FOR PT PER PLAN OF CARE
[2018-11-28 19:54] VITALS: BP 103/55
--- NOTE | 2018-11-29 03:25 | NUR ---
ASSUMED CARE 1899. VSS. ASSESSMENT CHARTED. SR 1DAV ON MONITOR. PT C/O L ARM PAIN CONTROLED WITH PRN PAIN MEDS PER EMAR. 5 L NC, BIPAP AT NIGHT, CL/DIM. LOW OUTPUT, PT USED URINAL. RENAL/ LOW NA DIET, FLUID RESTRICTION PER ORDERS. PT PREFERS SANGEETHA WRAPS OVER SCDS. Q2/PRN TURNS, USING WEDGES PT PREFERS. PT IN HOPES OF REHAB SOON. PLAN FOR LABS IN AM. WILL CONTINUE TO MONITOR AND WITH POC.
[2018-11-29 04:02] VITALS: BP 130/68
[2018-11-29 08:31] VITALS: BP 117/73
[2018-11-29 11:02] VITALS: BP 110/59
--- NOTE | 2018-11-29 13:43 | NUR ---
AUTHORIZATION FOR ACUTE REHAB REQUESTED THIS DATE FROM PATIENT'S INSURANCE, [employer]. REFERENCE NUMBER [id number]. WILL UPDATE CASE MANAGEMENT ONCE NOTIFIED BY [facility]re OF OUTCOME. THANK YOU FOR THIS REFERRAL.
[2018-11-29 16:19] VITALS: BP 123/62
--- NOTE | 2018-11-29 17:13 | NUR ---
ASSUMED CARE OF PT AT SHIFT CHANGE. ASSESSMENTS CHARTED. MEDS GIVEN PER JAN. PT AOX4, C/O LEFT ARM PAIN-MANAGED WITH IV PAIN MEDS. DENIES CHEST PAIN. NO S/SX OF CARDIAC OR RESP DISTRESS NOTED. O2 SATS WNL ON 5L O2. WEARS BIPAP AT NIGHT. PT WORKED WITH PHYSICAL THERAPY TODAY. PT TO HAVE DIALYSIS WHICH HAS NOT YET OCCURED. WILL CONTINUE TO MONITOR AND FOLLOW POC.
[2018-11-29 19:45] VITALS: BP 119/64
--- NOTE | 2018-11-30 03:25 | NUR ---
ASSUMED PT CARE AT 1900. PT A/OX4, VITAL SIGNS STABLE, ASSESSMENT CHARTED. PT WAS BEING DIALIZED AT START OF SHIFT. APPROXIMATELY 2L OF FLUID TAKEN OUT. PT COMPLAINED OF LEFT ARM/HAND PAIN. PAIN ADEQAUTELY MANAGED WITH PAIN MEDICATION. Q2-3HOUR TURNS COMPLATED. PT RESTED WELL THROUGH THE NIGHT. HOURLY ROUNDING COMPLETED. PROGRESSING TOWARD PLAN OF CARE. WILL CONTINUE TO MONITOR.
[2018-11-30 04:05] LABS: CALCIUM 8.9 mg/dL (8.5-10.1); POTASSIUM 3.8 mmol/L (3.5-5.1)
[2018-11-30 04:13] LABS: CREATININE 2.4 mg/dL (0.7-1.3)
[2018-11-30 05:24] VITALS: BP 116/67
[2018-11-30 07:38] VITALS: BP 118/72
[2018-11-30 12:01] VITALS: BP 139/68
[2018-11-30 15:35] VITALS: BP 91/52
--- NOTE | 2018-11-30 15:55 | NUR ---
CONT TO WAIT FOR AUTH FROM INSURANCE FOR 5N. UPDATED PATIENT, HE STRONGLY WANTS TO GO TO 5N. HE PLEADS TO NOT GO TO A NURSING FACILITY FOR THERAPY. TRANSPORTATION TO/FROM DIALYSIS MAY BE A BURDEN.
[2018-11-30 19:32] VITALS: BP 96/46
--- NOTE | 2018-12-01 04:09 | NUR ---
ASSUMED PT CARE AT 1900. PT A/OX4, VITAL SIGNS STABLE, ASSESSMENT CHARTED. SAT ON THE SIDE OF BED FOR A FEW MINUTES AT START OF SHIFT. PT COMPLAINED OF LEFT HAND PAIN WHICH WAS ADEQAUTELY MANAGED WITH PAIN MEDICATION. RESTED WELL THROUGH THE NIGHT. USED BIPAP AT HS. PROGRESSING TOWARD PLAN OF CARE. WILL CONTINUE TO MONITOR.
[2018-12-01 04:49] VITALS: BP 116/63
[2018-12-01 04:56] LABS: HEMATOCRIT 26.4 % (42.0-52.0); MCH 26.4 pg (26.0-34.0); MCHC 30.1 g/dL (28.0-37.0); MCV 87.7 fL (80.0-100.0); RBC 3.01 mil/uL (4.50-6.00); RDW 20.2 % (10.5-14.5); WBC 5.6 thou/uL (4.0-11.0)
[2018-12-01 05:06] LABS: ALBUMIN 2.5 g/dL (3.4-5.0); CALCIUM 9.3 mg/dL (8.5-10.1); PHOSPHORUS 4.2 mg/dL (2.5-4.9)
[2018-12-01 05:12] LABS: CREATININE 3.6 mg/dL (0.7-1.3)
--- NOTE | 2018-12-01 10:32 | NUR ---
CONT TO AWAIT AUTH FROM [facility]. [facility] ACCEPTING FOR COMMUNITY DIALYSIS 1030 CHAIR T/TH/SAT
--- NOTE | 2018-12-01 14:28 | NUR ---
CONCRETER CONTACTED BALDEMAR BELTRAN AT [facility], TO NOTIFY THAT, REQUESTED, PATIENT HAS HAD 2 DAYS OF OCCUPATIONAL THERAPY AND PHYSICAL THERAPY. REQUESTED THAT RUBY PROCESS FOR AUTHORIZATION FOR ACUTE REHAB.
[2018-12-01 16:00] VITALS: BP 114/61
--- NOTE | 2018-12-01 16:11 | NUR ---
insurance questions support system for patient and he has [facility] pallative care RN practioner. Sp with patient who reports his sisters live out of town. he has friends support in area. He has RN practioner who comes to see him but when asked regarding pallative care patient questioned meaning of pallative care. Called [facility] and requested page to his RN practioner to discuss how often visits and role. Prev CM note indicates patient and [facility] interested in HH care as patient can have RN practioner from [facility] and care. Patient was planning HH with [facility] [place]. Patient cont to pursue aggresive tx, ie new dialysis, wanting aggresive rehab provided by , planning to establish PCP at [place]. Patient cont to work with therapy in acute care setting and compliant with care. He is praying he can transfer to as when he was there in 2016 he rec [facility] rehab to [place] [facility]. Patient has new clinic [facility] in which he plans to drive himself to/from dialysis. Continue to await decision regarding ins auth for
--- NOTE | 2018-12-01 16:12 | NUR ---
SPOKE WITH RUBY, DIFFERENTIAL SPECIALIST FROM [facility], REGARDING PATIENT. RUBY STATES REQUEST FOR ADDITIONAL INFORAMTION REGARIDNG THE FOLLOWING AREAS: 1- PATIENT IS IN A PALLATIVE CARE PROGRAM WHICH MAY IMPLY A DIFFERENT GOAL THAN REHAB. 2- PATIENT HAS NO SUPPORT AT HOME. PASTE MIXER LIQUID TOLD RUBY THAT INFORMATION WOULD BE OBTAINED ON THESE ISSUES. INFORMATION OBTAINED IS FOLLOWS: 1- PATIENT WAS UNAWARE THAT NURSE "COMING OUT TO HELP WITH MEDICATIONS." WAS A PALLATIVE CARE NURSE AND IT IS NOT CLEAR THAT PATIENT EVEN UNDERSTANDS WHAT PALLATIVE CARE MEANS. DIFFERENTIAL SPECIALIST REPORTED THAT PATIENT WANTS THERAPY WHEN HE RETURNS TO HOME. PATIENT DESIRES TO REGAIN INDEPENDENCE. 2- PER PATIENT, PATIENT DOES HAVE FRIENDS IN THE AREA THAT WILL BE ABLE TO PROVIDE SOME ASSITANCE WHEN PATIENT RETURNS HOME. PATIENT IS VERY MOTIVATED FOR ACUTE REHAB. PATIENT DOES NOT WANT TO GO TO ASSISTED TO RECEIVE THERAPY. PATIENT'S DESIRE AND PLAN IS TO REGAIN STRENGTH AND FUNCTIONAL ABILITIES TO ALLOW HIM TO DRIVE HIMSELF TO HEMODIALYSIS UPON RETURNING TO HOME. RUBY CALLED BY [facility] AND INFORMED THAT INFORMATION REQUESTED WAS IN A NOTE BY LIAISON IN PATIENT'S CHART, WHICH [facility] HAS ACCESS TO RETRIEVE.
--- NOTE | 2018-12-01 16:26 | NUR ---
ASSUMED CARE AT SHIFT CHANGE. PT A/O X 4. ASSESSMENTS PER CHART. PT C/O PAIN TO L HAND AND ELBOW WELL R HIP INTERMITTENTLY THROUGHOUT THE DAY, PRN PAIN MEDS GIVEN PER JAN. PT HAD DIALYSIS- REMOVED 2.5L. SAT UP TO EDGE OF BED TODAY, REPOSITIONED IN BED PRN. AWAITING INSURANCE AUTH FOR REHAB. PT CALM, COOPERATIVE AND PLESANT. LABS NOTED. PT UPDATED ON POC. WILL CONT TO MONITOR AND INTERVENE PRN.
[2018-12-01 20:34] VITALS: BP 95/58
--- NOTE | 2018-12-02 04:06 | NUR ---
ASSUMED PT CARE AT 1900. A/OX4, VITAL SIGNS STABLE, ASSESSMENT CHARTED. PAIN ADEQAUTELY MANAGED WITH MEDICATION. PT RESTED WELL THROUGH THE NIGHT. NO COMPLAINTS OF CHEST PAIN OR SOB. USED BIPAP AT HS. PROGRESSING TOWARD PLAN OF CARE. WILL CONTINUE TO MONITOR.
[2018-12-02 05:05] VITALS: BP 99/61
[2018-12-02 08:00] VITALS: BP 108/67
--- NOTE | 2018-12-02 10:39 | NUR ---
ARTIS BELTRAN CALLED. STATED THAT THE CYTOTECHNOLOGIST/HISTOTECHNOLOGIST DENIED AUTH FOR ADMIT TO ACUTE REHAB, STATING REASON : PATIENT IS DEBILITATED WITH POOR SUPPORT AT DISCHARGE, DOESN'T NEED REHAB ROLLED GOLD PLATER TO SEE 3 TIMES A WEEK, AND NEEDS CAN BE MET AT A SKILLED FACILITY. IT ACUTE MD WOULD LIKE TO DO A PEER TO PEER, IT WILL NEED TO BE SCHEDULED BEFORE 1630 TODAY. CALL [phone] TO SCHEDULE. BRANCH SERVICE REPRESENTATIVE HAS BEEN NOTIFIED.
[2018-12-02 12:10] VITALS: BP 115/73
--- NOTE | 2018-12-02 13:58 | NUR ---
Per the 5N liason, the insurance has denied auth for an acute rehab stay. Peer to peer initiated. Pt is motivated and his goal is to be able to return to indep living and drive himself to and from outpt dialysis. His rehab potential is very good. Will await peer to peer outcome.
[2018-12-02 16:00] VITALS: BP 105/63
--- NOTE | 2018-12-02 17:08 | NUR ---
PEER TO PEER WAS COMPLETED, AND THE DENIAL WAS OVERTURNED, THIS PATIENT DOES MEET ADMISSION CRITERIA FOR ACUTE INPATIENT REHAB ADMISSION PER MEDICARE GUIDELINES. ACUTE RN WAS NOTIFIED, AND SHE STATED THAT SHE HAS CONTACTED DR. KINGSLEY WHO IS DOING THE DISCHARGE. THANK YOU FOR THIS REFERRAL.
[2018-12-02] MEDS ORDERED: CHLORTHALIDONE25 MG PO (17:20)
[2018-12-02] MEDS ORDERED: IPRAT-ALBUT 0.5-3 ML INH (17:21)
[2018-12-02] MEDS ORDERED: SYNTHROID200 MCG PO (17:22)
--- NOTE | 2018-12-02 19:56 | NUR ---
ASSUMED CARE OF PT AT 0700. PT A&OX4, UP WITH PHYSICAL THERAPIST. PT WALKED TO HALLWAY TODAY. PT VITALS WNL, BLOOD PRESSURE SLIGHTLY LOW WITH NO SYMPTOMS. PT EDUCATED REGARDING PREVENTION OF PRESSURE ULCERS AND STATED HE WOULD TURN HIMSELF. PT REFUSED NURSE TURNS. PT WAS SINUS RHYTHM WITH 1D ON TELEMETRY. PT IV AND TELE REMOVED BEFORE PT TRANSFERED TO 5N. BIPAP AND BELONGING TAKEN TO HIS NEW ROOM. PT TRANSPORTED BEFORE SHIFT CHANGE VIA BED. REPORT CALLED TO NURSE HERNANDEZ
== END 2018-12-02 17:59 | DRG 673 ==
LOC: ER 16:28 → ICU 18:16 → EROBS 18:16 → 3W 18:16 → ICU 11-21 08:18 → 2N 11-25 17:53
PROVIDERS: Emergency Medicine; Hospitalist; Internal Medicine Nephrology; Internal Medicine Pulmonary Disease; Nurse Practitioner Acute Care; Nurse Practitioner Adult Health; Nurse Practitioner Family; Pediatrics; ADMIT Hospitalist
PROC: 5A09357 Assistance with Respiratory Ventilation, Less than 24 Consecutive Hours, Continuous Positive Airway Pressure (ICD-10-PCS; principal; 2018-11-15)
PROC: 5A09357 Assistance with Respiratory Ventilation, Less than 24 Consecutive Hours, Continuous Positive Airway Pressure (ICD-10-PCS; 2018-11-16)
PROC: 5A09357 Assistance with Respiratory Ventilation, Less than 24 Consecutive Hours, Continuous Positive Airway Pressure (ICD-10-PCS; 2018-11-17)
PROC: 5A09357 Assistance with Respiratory Ventilation, Less than 24 Consecutive Hours, Continuous Positive Airway Pressure (ICD-10-PCS; 2018-11-18)
PROC: 5A09357 Assistance with Respiratory Ventilation, Less than 24 Consecutive Hours, Continuous Positive Airway Pressure (ICD-10-PCS; 2018-11-19)
PROC: 5A09357 Assistance with Respiratory Ventilation, Less than 24 Consecutive Hours, Continuous Positive Airway Pressure (ICD-10-PCS; 2018-11-20)
PROC: 02HV33Z Insertion of Infusion Device into Superior Vena Cava, Percutaneous Approach (ICD-10-PCS; 2018-11-21)
PROC: 5A1D70Z Performance of Urinary Filtration, Intermittent, Less than 6 Hours Per Day (ICD-10-PCS; 2018-11-21)
PROC: 5A09357 Assistance with Respiratory Ventilation, Less than 24 Consecutive Hours, Continuous Positive Airway Pressure (ICD-10-PCS; 2018-11-21)
PROC: 5A09357 Assistance with Respiratory Ventilation, Less than 24 Consecutive Hours, Continuous Positive Airway Pressure (ICD-10-PCS; 2018-11-22)
PROC: 5A1D70Z Performance of Urinary Filtration, Intermittent, Less than 6 Hours Per Day (ICD-10-PCS; 2018-11-22)
PROC: 5A1D70Z Performance of Urinary Filtration, Intermittent, Less than 6 Hours Per Day (ICD-10-PCS; 2018-11-23)
PROC: 5A09357 Assistance with Respiratory Ventilation, Less than 24 Consecutive Hours, Continuous Positive Airway Pressure (ICD-10-PCS; 2018-11-24)
PROC: 5A1D70Z Performance of Urinary Filtration, Intermittent, Less than 6 Hours Per Day (ICD-10-PCS; 2018-11-24)
PROC: 5A1D70Z Performance of Urinary Filtration, Intermittent, Less than 6 Hours Per Day (ICD-10-PCS; 2018-11-25)
PROC: 05PYX3Z Removal of Infusion Device from Upper Vein, External Approach (ICD-10-PCS; 2018-11-25)
PROC: B548ZZA Ultrasonography of Superior Vena Cava, Guidance (ICD-10-PCS; 2018-11-25)
PROC: 5A09357 Assistance with Respiratory Ventilation, Less than 24 Consecutive Hours, Continuous Positive Airway Pressure (ICD-10-PCS; 2018-11-25)
PROC: B5181ZA Fluoroscopy of Superior Vena Cava using Low Osmolar Contrast, Guidance (ICD-10-PCS; 2018-11-25)
PROC: 02HV33Z Insertion of Infusion Device into Superior Vena Cava, Percutaneous Approach (ICD-10-PCS; 2018-11-25)
PROC: 0JH63XZ Insertion of Tunneled Vascular Access Device into Chest Subcutaneous Tissue and Fascia, Percutaneous Approach (ICD-10-PCS; 2018-11-25)
PROC: 5A09357 Assistance with Respiratory Ventilation, Less than 24 Consecutive Hours, Continuous Positive Airway Pressure (ICD-10-PCS; 2018-11-26)
PROC: 5A1D70Z Performance of Urinary Filtration, Intermittent, Less than 6 Hours Per Day (ICD-10-PCS; 2018-11-26)
PROC: 5A09357 Assistance with Respiratory Ventilation, Less than 24 Consecutive Hours, Continuous Positive Airway Pressure (ICD-10-PCS; 2018-11-27)
PROC: 5A1D70Z Performance of Urinary Filtration, Intermittent, Less than 6 Hours Per Day (ICD-10-PCS; 2018-11-28)
PROC: 5A09357 Assistance with Respiratory Ventilation, Less than 24 Consecutive Hours, Continuous Positive Airway Pressure (ICD-10-PCS; 2018-11-28)
PROC: 5A1D70Z Performance of Urinary Filtration, Intermittent, Less than 6 Hours Per Day (ICD-10-PCS; 2018-11-29)
PROC: 5A09357 Assistance with Respiratory Ventilation, Less than 24 Consecutive Hours, Continuous Positive Airway Pressure (ICD-10-PCS; 2018-11-29)
PROC: 5A1D70Z Performance of Urinary Filtration, Intermittent, Less than 6 Hours Per Day (ICD-10-PCS; 2018-12-01)
DX: N17.9 Acute kidney failure, unspecified (principal); J96.21 Acute and chronic respiratory failure with hypoxia; J96.22 Acute and chronic respiratory failure with hypercapnia; I50.33 Acute on chronic diastolic (congestive) heart failure; I13.2 Hypertensive heart and chronic kidney disease with heart failure and with stage 5 chronic kidney disease, or end stage renal disease; Z68.41 Body mass index [BMI] 40.0-44.9, adult; J44.1 Chronic obstructive pulmonary disease with (acute) exacerbation; E66.2 Morbid (severe) obesity with alveolar hypoventilation; N18.6 End stage renal disease; G47.33 Obstructive sleep apnea (adult) (pediatric); I48.0 Paroxysmal atrial fibrillation; E03.9 Hypothyroidism, unspecified; I27.29 Other secondary pulmonary hypertension; I50.810 Right heart failure, unspecified; E87.5 Hyperkalemia; D63.8 Anemia in other chronic diseases classified elsewhere; E11.42 Type 2 diabetes mellitus with diabetic polyneuropathy; E11.22 Type 2 diabetes mellitus with diabetic chronic kidney disease; Z99.81 Dependence on supplemental oxygen; Z91.11 Patient's noncompliance with dietary regimen; Z93.0 Tracheostomy status; Z90.49 Acquired absence of other specified parts of digestive tract; Z79.899 Other long term (current) drug therapy; Z79.84 Long term (current) use of oral hypoglycemic drugs; Z28.21 Immunization not carried out because of patient refusal
CPT/HCPCS: 10078; 10081; 10879; 32100